=== PATIENT | female | born 1975 | race Caucasian/White ===

== ENCOUNTER 2018-12-04 17:49 | Emergency (ER) | payer OTHER, SELFPAY ==
[2018-12-04 17:55] VITALS: BP 132/80; PULSE 72; RESP 16; TEMP 36.2; O2SAT 100
--- NOTE | 2018-12-04 18:33 | ED_ITS ---
HPI - Trauma General Chief Complaint: Trauma Stated Complaint: HIT HEAD PASSED OUT Time Seen by Provider: 12/04/18 18:21 Source: patient Mode of arrival: ambulatory Limitations: no limitations History of Present Illness HPI narrative: Otherwise healthy 43-year-old female here for evaluation of injury she sustained after she was thrown from a horse. She states she was riding her horse when the horse ran her into a branch. She states she was wearing a helmet. Did hit the left side of her head. She does not specifically remember the incident. The next thing she remembers was waking up on the ground. Does not know how long she was down. She was ambulatory afterwards. Was somewhat confused afterwards. Not on blood thinners. No extremity injuries. She stated that there was no damage to her helmet other than the visor will was broken. Has reports that she has been somewhat confused and repeating questions. Related Data Allergies Allergy/AdvReac Type Severity Reaction Status Date / Time Penicillins Allergy Verified 12/04/18 17:54 Review of Systems Constitutional Denies headache(s) and Denies weakness Eyes Denies loss of vision ENT Ears, Nose, Mouth, and Throat: Denies vertigo, Denies dizziness, Denies headache (s), Reports neck pain and Denies disequilibrium Cardiovascular Denies chest pain, Denies syncope and Denies dyspnea Respiratory Denies dyspnea Gastrointestinal Gastrointestinal: Denies abdominal pain, Reports nausea and Denies vomiting Musculoskeletal Denies abnormal gait, Denies back pain, Denies myalgias, Denies arthralgias, Denies joint swelling, Denies limited range of motion, Reports neck pain, Denies stiffness and Denies tingling Integumentary/Breasts Denies rash Comments: Abrasion to the left forehead Neurologic Denies abnormal gait, Denies burning sensations, Reports confusion, Denies vertigo, Denies dizziness, Denies syncope, Denies headache(s), Denies focal weakness, Denies loss of vision, Reports memory loss, Denies other visual disturbances, Denies seizure-like activity, Denies sensory deficit, Denies tingling, Denies paresthesias, Denies disequilibrium and Denies weakness Psychiatric Reports confusion and Reports memory loss Hematologic/Lymphatic Comments: Not on anticoagulation PFSH Medical History Healthy adult (Acute) Surgical History No pertinent past surgical history (Acute) Social History Smoking Status: Never smoker Exam Initial Vital Signs Initial Vital Signs: Vital Signs Temperature 97.2 F L 12/04/18 17:55 Pulse Rate 72 12/04/18 17:55 Respiratory Rate 16 12/04/18 17:55 Blood Pressure 132/80 12/04/18 17:55 Pulse Oximetry 100 12/04/18 17:55 Const General: cooperative, healthy appearing, comfortable, well developed, well groomed and No acute distress Orientation: alert, awake and oriented x3 HENMT Head: other (Abrasion to the left forehead) Nose: external nose normal Mouth: oral mucosae normal Teeth and gingiva: dentition normal Chest Chest: normal inspection of the chest and No crepitus Resp Effort & Inspection: normal respiratory effort Auscultation: clear to auscultation bilaterally Cardio Rate: regular rate Rhythm: regular rhythm Pulses: radial pulses present GI Inspection: non-distended Palpation: soft Back/Spine/Pelvis Cervical Spine: No cervical spasm, cervical spinal tenderness and No step off deformity Thoracic/Lumbar Spine: No thoracic spinal tenderness and No lumbar spinal tenderness Skin Other: Abrasion left forehead Neuro General: alert, awake and oriented x3 Cranial Nerves: CN's II-XI intact bilaterally Cognition: normal cognition Speech: speech normal Motor: muscle tone normal throughout Sensory Exam: no sensory deficits noted Extrem General: normal to inspection, full ROM, capillary refill normal and No edema Psych Appearance: grossly normal and well kempt Course Orders Ordered: ED Orders 12/04/18 18:34 CT cervical spine wo con Stat 12/04/18 18:35 CT head/brain wo con Stat Discontinued Medications Ondansetron HCl (Zofran Odt) 4 mg SL NOW ONE Stop: 12/04/18 18:48 Last Admin: 12/04/18 18:48 Dose: 4 mg Vital Signs - 8 hr 12/04/18 17:55 12/04/18 19:35 Temperature 97.2 F L Pulse Rate 72 78 Respiratory Rate 16 15 Blood Pressure 132/80 Blood Pressure [Left Arm] 133/77 Pulse Oximetry 100 100 MDM - Trauma Imaging Data CT cervical spine: Radiologist's impression: PROCEDURE: CT CERVICAL SPINE WO CON INDICATIONS: fall hit head with LOC TECHNIQUE: Noncontrast 3 mm thick sections acquired from the skull base to the T4 level. Sagittal and coronal reformats were then constructed. For radiation dose reduction, the following was used: automated exposure control, adjustment of mA and/or kV according to patient size. COMPARISON: None. FINDINGS: Image quality: Excellent. Bones: No fractures or dislocations. There is straightening of the cervical lordosis. Minimal anterolisthesis demonstrated at C4-C5. There is [id number] multilevel facet arthropathy including moderate degeneration at C4-C5. Visualized superior ribs are intact. Soft tissues: Prevertebral soft tissues are normal in thickness. No paravertebral hematomas. No apical pneumothoraces. IMPRESSION: 1. No definite fracture or subluxation. 2. Minimal anterolisthesis at C4-C5 likely degenerative in etiology. Dictated by: Harinder Poe M.D. on 12/04/2018 at 19:10 Approved by: Harinder Poe M.D. on 12/04/2018 at 19:12 CT scan - head: Radiologist's impression: [place] [address] CT Scan Report Signed Patient: STEPHANIE KAMARA MR#: [id number] : 1975 Acct:[id number] Age/Sex: 43 / F Date of Service: 12/04/18 Loc: ED Accession Number: [id number] Procedure: CT head/brain wo con Ordering Provider: Darrick Ayon D.O. PROCEDURE: CT HEAD/BRAIN WO CON INDICATIONS: fell hit head with LOC TECHNIQUE: Noncontrast 4.5 mm thick angled axial sections acquired from the foramen magnum to the vertex, with coronal and sagittal reformats. For radiation dose reduction, the following was used: automated exposure control, adjustment of mA and/or kV according to patient size. COMPARISON: None. FINDINGS: Image quality: Excellent. CSF spaces: Basal cisterns are patent. No extra-axial fluid collections. Ventricles are normal in size and shape. Brain: No intracranial hemorrhage, mass, or mass effect. Swann-white matter interface is preserved. Skull and face: Calvarium and visualized facial bones are intact, without suspicious lesions. Sinuses: Visualized sinuses and mastoids are clear. IMPRESSION: 1. No acute intracranial abnormality. Dictated by: Harinder Poe M.D. on 12/04/2018 at 19:09 Approved by: Harinder Poe M.D. on 12/04/2018 at 19:10 MDM Narrative Medical decision making narrative: Patient was placed in a cervical collar and she was brought back to the room due to midline cervical spine tenderness. The CT scan and head CT did eventually resulted as unremarkable. Patient does have an abrasion to her left forehead which does not need any interventions here in the emergency department. We did discuss that she was going to be more sore tomorrow. We did discuss the possibility of having other symptoms to include nausea and headaches in vision changes in mood swings. We did discuss that if she had specific additional symptoms tomorrow that she should return for further evaluation. She was also instructed she needed to replace her writing helmet. Her was at bedside for these discussions. Expressed understanding and agreement with plan. Discharge Plan Departure Patient Disposition: Home Clinical Impression: Concussion, CHI (closed head injury), Abrasion of forehead Discharge Date/Time: 12/04/18 19:42 Interventions: ED Discharge Assessment Last Done: 12/04/18 19:41 Instructions: Concussion, Closed Head Injury, DI for Abrasion Activity Restrictions/Additional Instructions: Expect to be more sore tomorrow. You can sleep like normal. You can eat like normal. You can take Tylenol and/or Motrin for any discomfort. I would recommend that you may contact with a primary care doctor. You can return to the emergency department at any time for new or worsening symptoms
[2018-12-04] MEDS: ONDANSETRON 4 MG ODT SL (18:48)
[2018-12-04 19:35] VITALS: BP 133/77; PULSE 78; RESP 15; O2SAT 100
== END 2018-12-04 19:42 | disposition home or self-care (01) ==
PROVIDERS: Emergency Provider Emergency Medicine
DX: S09.90XA Unspecified injury of head, initial encounter (principal); W22.8XXA Striking against or struck by other objects, initial encounter; Y93.52 Activity, horseback riding
CPT/HCPCS: 70450; 72125; 99283; 99284

== ENCOUNTER 2020-06-12 20:36 | Observation (INO) | payer OTHER, SELFPAY ==
[2020-06-12] VITALS (11 sets, daily range): BP systolic 119–167; BP diastolic 71–102; PULSE 59–77; RESP 15–19; TEMP 36.6; O2SAT 97–100; BMI 23.1
--- NOTE | 2020-06-12 20:45 | DI.CT.S_ITS ---
PROCEDURE: CT HEAD/BRAIN WO CON INDICATIONS: left side of body numb TECHNIQUE: Noncontrast 4.5 mm thick angled axial sections acquired from the foramen magnum to the vertex, with coronal and sagittal reformats. For radiation dose reduction, the following was used: automated exposure control, adjustment of mA and/or kV according to patient size. COMPARISON: [facility], CT, CT HEAD/BRAIN WO CON, 12/04/2018, 18:41. FINDINGS: Image quality: Excellent. CSF spaces: Basal cisterns are patent. No extra-axial fluid collections. Ventricles are normal in size and shape. Brain: No midline shift. No intracranial masses or hemorrhage. Swann-white matter interface is normal. Skull and face: Calvarium and visualized facial bones are intact, without suspicious lesions. Sinuses: Visualized sinuses and mastoids are clear. IMPRESSION: No CT evidence of acute intracranial pathology. No significant changes from previous study. Dictated by: Kahlil Jasmine M.D. on 06/12/2020 at 21:16 Approved by: Kahlil Jasmine M.D. on 06/12/2020 at 21:17
[2020-06-12 21:08] LABS: Add Manual Diff / Slide Review NO; Basophils Absolute Auto 100 /uL (0-100); Basophils Percent Auto 0.9 % (0-2); Eosinophils Absolute Auto 0 /uL (0-450); Hematocrit 40.9 % (36-46); Hemoglobin 13.8 g/dL (12.0-16.0); Lymphocytes Absolute Auto 2300 /uL (1100-4500); Lymphocytes Percent Auto 38.8 % (25-40); Mean Corpuscular HGB Conc 33.8 % (30-36); Mean Corpuscular Volume 91.7 fL (80-100); Monocytes Absolute Auto 300 /uL (0-900); Monocytes Percent Auto 5.5 % (3-14); Neutrophils Absolute Auto 3200 /uL (1500-7000); Neutrophils Percent Auto 54.8 % (50-75); Platelet Count 273 X10^3/uL (150-400); Red Blood Cell Count 4.46 X10^6/uL (4.0-5.2); Red Cell Distribution Width 13.1 % (11.6-14.8); White Blood Cell Count 5.9 X10^3/uL (4.5-11.0)
[2020-06-12 21:15] LABS: Prothrombin Time 11.5 SECONDS (10.1-12.7)
[2020-06-12 21:18] LABS: PTT Partial Thromboplastin Tim 30 SECONDS (26.4-36.2)
[2020-06-12 21:21] LABS: BUN Creatinine Ratio 23.9 (6-22); Blood Urea Nitrogen 21 mg/dL (7-17); Calcium 9.7 mg/dL (8.4-10.2); Carbon Dioxide 26 mmol/L (22-32); Chloride 106 mmol/L (98-107); Estimated Glomerular Filt Rate > 60.0 mL/min (>60); Glucose 85 mg/dL (70-100); HEMOLYSIS < 15 (0-50); Potassium 3.3 mmol/L (3.4-5.1); Sodium 139 mmol/L (137-145)
--- NOTE | 2020-06-12 21:22 | ED_ITS ---
HPI - Neuro Symptoms/Deficit General Chief Complaint: Neuro Symptoms/Deficit Stated Complaint: tingling left side of her body Time Seen by Provider: 06/12/20 20:42 Source: patient Mode of arrival: Ambulatory Limitations: no limitations History of Present Illness HPI Narrative: 44F nonsmoker without chronic medical history presents with the chief complaint of decreased sensation on much of the left side of her body since 0700. She first noticed some numbness and occasional tingling on her chin and then noticed left arm and leg. She occasionally has vague generalized headache in thinks she had some headache this morning but is not persistent. She denies any recent injury nor illness involving fever, chills, runny nose, sore throat or cough. She denies any recent traumatic injury. She denies any change in medications or diet. She denies associated symptoms such as blurred vision, trouble with speech, trouble with coordination or ambulation. She denies any history of the same. Onset (ago): hour(s) Location: left face, left arm and left leg History of same: No Severity: mild Quality: numb and tingling Relieving factors: none Exacerbating factors: none On Anticoagulants: No Associated symptoms: denies other symptoms Treatments Prior to Arrival: none Related Data Allergies Allergy/AdvReac Type Severity Reaction Status Date / Time Penicillins Allergy Verified 12/04/18 17:54 Review of Systems Constitutional Constitutional: Denies chills, Denies fatigue, Denies fever(s), Denies frequent falls, Denies lethargy and Denies weakness Eyes Eyes: Denies change in vision, Denies eye discharge, Denies irritation and Denies loss of vision ENT Ears, Nose, Mouth, and Throat: Denies change in voice, Denies dizziness, Denies neck pain, Denies sore throat and Denies throat swelling Cardiovascular Cardiovascular: Denies chest pain, Denies irregular heart rhythm, Denies lightheadedness, Denies palpitations, Denies dyspnea, Denies dyspnea on exertion and Denies orthopnea Respiratory Respiratory: Denies cough, Denies dyspnea, Denies dyspnea on exertion and Denies wheezing Gastrointestinal Gastrointestinal: Denies abdominal pain, Denies change in bowel habits, Denies diarrhea, Denies nausea and Denies vomiting Musculoskeletal Musculoskeletal: Denies neck pain, Denies numbness and Reports tingling Integumentary/Breasts Skin/Breast: Denies pruritus, Denies erythema, Denies rash and Denies wounds Neurologic Neurologic: Denies behavioral changes, Denies confusion, Denies dizziness, Denies frequent falls, Denies loss of vision, Denies numbness, Reports sensory deficit, Reports tingling and Denies weakness Psychiatric Psychiatric: Denies anxiety, Denies behavioral changes, Denies confusion, Denies depression, Denies homicidal ideation and Denies suicidal ideation Endocrine Endocrine: Denies fatigue, Denies flushing and Denies palpitations Hematologic/Lymphatic Hematologic/Lymphatic: Denies easy bruising Allergic/Immunologic Allergic/Immunologic: Denies urticaria, Denies throat swelling and Denies wheezing Patient History Medical History Healthy adult (Acute) Surgical History No pertinent past surgical history (Acute) Social History Smoking Status: Never smoker Smoking Status: Never smoker alcohol intake frequency: 0-2 drinks per day Substance Use Type: does not use Exam Narrative Exam Narrative: GENERAL: [44] year old patient appears stated age. Well- nourished, well-developed patient, in mild distress. HEAD: Atraumatic. Normocephalic. EYES: Pupils equal round and reactive. Extraocular motions intact. No scleral icterus. No injection or drainage. ENT: Nose without bleeding, purulent drainage. Throat without erythema, tonsillar hypertrophy or exudate. Airway patent. NECK: Trachea midline. Non tender CARDIOVASCULAR: Regular rate and rhythm without murmurs, gallops, or rubs. RESPIRATORY: Clear to auscultation. Breath sounds equal bilaterally. No wheezes, rales, or rhonchi. GASTROINTESTINAL: Abdomen soft, non-tender, nondistended. EXTREMITIES: No edema or joint tenderness. BACK: Nontender without deformity or crepitance. No flank tenderness. NEURO: AOx3. Reflexes and strength in tact. LUE/LLE with decreased sensation of pinprick, light touch, and temperature. LUE has slightly decreased accuracy of 2 point discrimination SKIN: No rash or erythema of visible areas Initial Vital Signs Initial Vital Signs: Vital Signs Pulse Rate 74 06/12/20 20:45 Pulse Oximetry 100 06/12/20 20:45 Scores NIH Stroke Scale Level of Conciousness: Alert, keenly responsive Ask month/age: Answers both questions correctly. Open/close eyes, close hand: Performs both tasks correctly Best gaze horizontal: Normal Visual cano: No visual loss Facial palsy: Normal symetrical movement Left arm drift: No drift for full 10 sec Right arm drift: No drift for full 10 sec Left leg drift: No drift for full 10 sec Right leg drift: No drift for full 10 sec Limb ataxia: Absent Sensory on face/arms/legs: Mild to moderate sensory loss, can tell touch Best language: No aphasia, normal Dysarthria: Normal Extinction or inattention: No abnormality Total NIH Stroke scale score: 1 Course Course Course Narrative: initial BP high, normalized rather quickly without intervention. No change in symptoms as patient becomes normotensive. Atypical migraine considered a possibility, hence choice of medications, however no change in symptoms. Spinal etiology considered, but thought less likely given facial involvement. Orders Ordered: ED Orders 06/12/20 20:45 CT head/brain wo con Stat EKG-12 Lead Stat 06/12/20 21:01 Basic Metabolic Panel Stat Complete Blood Count AUTO DIFF Stat Partial Thromboplastin Time Stat Prothrombin Time INR Stat 06/12/20 22:29 CT angio head and neck Stat 06/12/20 22:49 Urine Drug Screen, Rapid Stat Sodium Chloride (Normal Saline 0.9%) 1,000 mls @ 150 mls/hr IV CONT BERTRAND Last Infusion: 06/12/20 22:04 Dose: 0 mls/hr Documented by: Admin: 06/12/20 21:40 Dose: 150 mls/hr Documented by: LASHA Discontinued Medications Sodium Chloride (Normal Saline 0.9%) 1,000 mls @ 1,000 mls/hr IV BOLUS ONE Stop: 06/12/20 22:57 Last Infusion: 06/12/20 23:06 Dose: 0 mls/hr Documented by: Admin: 06/12/20 22:09 Dose: 1,000 mls/hr Documented by: LASHA Ketorolac Tromethamine (Toradol) 15 mg IV NOW ONE Stop: 06/12/20 21:59 Last Admin: 06/12/20 22:08 Dose: 15 mg Documented by: LASHA Metoclopramide HCl (Reglan) 10 mg IV NOW ONE Stop: 06/12/20 21:59 Last Admin: 06/12/20 22:08 Dose: 10 mg Documented by: RNESTER Consultations Consultation #1: call to Neuro at [facility] for consult (Dr. Gunderson). He recommends CTA Head/Neck, admission, stroke MRI tomorrow Vital Signs Vital signs: Vital Signs - 8 hr 06/12/20 20:45 06/12/20 20:46 06/12/20 21:00 Temperature 97.8 F Pulse Rate 74 77 67 Respiratory Rate 16 19 Blood Pressure 167/102 H Pulse Oximetry 100 100 100 06/12/20 21:30 06/12/20 21:33 06/12/20 21:49 Temperature Pulse Rate 68 71 69 Respiratory Rate 15 18 Blood Pressure 141/78 H 141/78 H Pulse Oximetry 100 100 98 06/12/20 22:00 06/12/20 22:30 06/12/20 23:00 Temperature Pulse Rate 59 L 68 68 Respiratory Rate Blood Pressure 132/82 119/71 Pulse Oximetry 100 99 100 06/12/20 23:01 06/12/20 23:30 Temperature Pulse Rate 65 61 Respiratory Rate Blood Pressure 135/79 121/75 Pulse Oximetry 99 97 MDM - Neuro Symptoms/Deficit Lab Data Result diagrams: 06/12/20 21:01 06/12/20 21:01 Labs: Lab Results 06/12/20 06/12/20 06/12/20 Range/Units 21:01 21:01 21:01 WBC 5.9 (4.5-11.0) X10^3/uL RBC 4.46 (4.0-5.2) X10^6/uL Hgb 13.8 (12.0-16.0) g/dL Hct 40.9 (36-46) % MCV 91.7 (80-100) fL MCH 31.0 (26-34) PG MCHC 33.8 (30-36) % RDW 13.1 (11.6-14.8) % Plt Count 273 (150-400) X10^3/uL Neut % (Auto) 54.8 (50-75) % Lymph % (Auto) 38.8 (25-40) % [place] % (Auto) 5.5 (3-14) % Eos % (Auto) 0.0 L (2-4) % Baso % (Auto) 0.9 (0-2) % Neut # (Auto) 3200 (2310-1240) /uL Lymph # (Auto) 2300 (9643-4622) /uL [place] # (Auto) 300 (0-900) /uL Eos # (Auto) 0 (0-450) /uL Baso # (Auto) 100 (0-100) /uL PT 11.5 (10.1-12.7) SECONDS INR 1.0 (0.9-1.3) APTT 30 (26.4-36.2) SECONDS Sodium 139 (137-145) mmol/L Potassium 3.3 L (3.4-5.1) mmol/L Chloride 106 (98-107) mmol/L Carbon Dioxide 26 (22-32) mmol/L BUN 21 H (7-17) mg/dL Creatinine 0.88 (0.52-1.04) mg/dL Estimated GFR > 60.0 (>60) mL/min BUN/Creatinine Ratio 23.9 H (6-22) Glucose 85 (70-100) mg/dL Calcium 9.7 (8.4-10.2) mg/dL U Opiates 300ng/mL cut (Negative) Ur Oxycodone Screen (Negative) Urine Methadone Screen (Negative) Ur Barbiturates Screen (Negative) U Tricyclic Antidepress (Negative) Ur Phencyclidine Scrn (Negative) Ur Amphetamines Screen (Negative) U Methamphetamines Scrn (Negative) Ur MDMA Scrn (Ecstasy) (Negative) U Benzodiazepines Scrn (Negative) Urine Cocaine Screen (Negative) U Marijuana (THC) Screen (Negative) 06/12/20 Range/Units 22:49 WBC (4.5-11.0) X10^3/uL RBC (4.0-5.2) X10^6/uL Hgb (12.0-16.0) g/dL Hct (36-46) % MCV (80-100) fL MCH (26-34) PG MCHC (30-36) % RDW (11.6-14.8) % Plt Count (150-400) X10^3/uL Neut % (Auto) (50-75) % Lymph % (Auto) (25-40) % [place] % (Auto) (3-14) % Eos % (Auto) (2-4) % Baso % (Auto) (0-2) % Neut # (Auto) (8406-3616) /uL Lymph # (Auto) (2703-3870) /uL [place] # (Auto) (0-900) /uL Eos # (Auto) (0-450) /uL Baso # (Auto) (0-100) /uL PT (10.1-12.7) SECONDS INR (0.9-1.3) APTT (26.4-36.2) SECONDS Sodium (137-145) mmol/L Potassium (3.4-5.1) mmol/L Chloride (98-107) mmol/L Carbon Dioxide (22-32) mmol/L BUN (7-17) mg/dL Creatinine (0.52-1.04) mg/dL Estimated GFR (>60) mL/min BUN/Creatinine Ratio (6-22) Glucose (70-100) mg/dL Calcium (8.4-10.2) mg/dL U Opiates 300ng/mL cut Negative (Negative) Ur Oxycodone Screen Negative (Negative) Urine Methadone Screen Negative (Negative) Ur Barbiturates Screen Negative (Negative) U Tricyclic Antidepress Negative (Negative) Ur Phencyclidine Scrn Negative (Negative) Ur Amphetamines Screen Negative (Negative) U Methamphetamines Scrn Negative (Negative) Ur MDMA Scrn (Ecstasy) Negative (Negative) U Benzodiazepines Scrn Negative (Negative) Urine Cocaine Screen Negative (Negative) U Marijuana (THC) Screen Negative (Negative) Point of Care Testing Glucose POC 120 Urine Dip Bedside Urine Glucose Negative Bedside Urine Bilirubin - Negative Bedside Urine Ketone - Negative Urine Specific [place] 1.020 Bedside Urine Occult Blood - Negative Bedside Urine pH 6.0 Bedside Urine Protein - Negative Bedside Urine Urobilinogen - Negative Bedside Urine Nitrite - Negative Bedside Urine Leukocytes - Negative Esterase Imaging Data CT scan - head: Radiologist's Impression: [address] [address] [address] Scan Report Signed Patient: DASH KAMARA#: [id number] : 1975Acct:[id number] Age/Sex: 44 / FDate of Service: 06/12/20 Loc: ED Accession Number: [id number] Procedure: CT head/brain wo con Ordering Provider: [place],Abelardo D.O. PROCEDURE: CT HEAD/BRAIN WO CON INDICATIONS: left side of body numb TECHNIQUE: Noncontrast 4.5 mm thick angled axial sections acquired from the foramen magnum to the vertex, with coronal and sagittal reformats. For radiation dose reduction, the following was used: automated exposure control, adjustment of mA and/or kV according to patient size. COMPARISON: [facility], CT, CT HEAD/BRAIN WO CON, 12/04/2018, 18:41. FINDINGS: Image quality: Excellent. CSF spaces: Basal cisterns are patent. No extra-axial fluid collections. Ventricles are normal in size and shape. Brain: No midline shift. No intracranial masses or hemorrhage. Swann-white matter interface is normal. Skull and face: Calvarium and visualized facial bones are intact, without suspicious lesions. Sinuses: Visualized sinuses and mastoids are clear. IMPRESSION: No CT evidence of acute intracranial pathology. No significant changes from previous study. Dictated by: Kahlil Jasmine M.D. on 06/12/2020 at 21:16 Approved by: Kahlil Jasmine M.D. on 06/12/2020 at 21:17 CTA Head/Neck: Radiologist's Impression: NAP Discharge Plan Departure Patient Disposition: Admitted as Observation Clinical Impression: Cerebrovascular accident Qualifiers: CVA mechanism: unspecified Qualified Code(s): I63.9 - Cerebral infarction, unspecified
[2020-06-12] MEDS: SODIUM CHLORIDE 0.9% 1,000 ML 150 ML IV (21:40)
[2020-06-12] MEDS: METOCLOPRAMIDE 10 MG/2 ML INJ IV (22:08)
[2020-06-12] MEDS: KETOROLAC 60 MG/2 ML VIAL 15 MG IV (22:08)
[2020-06-12] MEDS: SODIUM CHLORIDE 0.9% 1,000 ML 1000 ML IV (22:09)
--- NOTE | 2020-06-12 22:29 | DI.CT.S_ITS ---
PROCEDURE: CT ANGIO HEAD AND NECK INDICATIONS: stroke symptoms, per neuro TECHNIQUE: Pre-contrast 4.5 mm thick sections acquired from the foramen magnum to the vertex. After the administration of intravenous contrast, 1 mm thick sections acquired from the aortic arch through the [place]. Post-contrast 4.5 mm thick sections then re-acquired from the foramen magnum to the vertex. 3-dimensional gzjrcoa-xvxukzgmr-yijazfxsuq (MIP) and/or volume rendering reformats were acquired of the central intracranial vasculature and neck separately. COMPARISON: None. FINDINGS: Image quality: Excellent. BRAIN: CSF spaces: Ventricles are normal in size and shape. Basal cisterns are patent. No extra-axial fluid collections. Brain: No midline shift. No intracranial bleeds or masses. Swann-white matter interface appears intact. Skull and face: Calvarium and facial bones appear intact, without suspicious lesions. Orbits appear normal. Sinuses: Sinuses and mastoids are clear. HEAD CT ANGIOGRAPHY: Anterior circulation: Intracranial internal carotid arteries are normal in size and flow. The flow within the paired anterior cerebral arteries is normal and symmetric. The flow within the middle cerebral arteries is normal and symmetric. The anterior communicating artery is seen. No aneurysms are seen. Posterior circulation: Visualized portions of the vertebral arteries demonstrate normal caliber, and join to form a normal appearing basilar artery. Flow within the posterior cerebral arteries is normal and symmetric. No aneurysms are seen. NECK CT ANGIOGRAPHY: Carotid system: The great vessels demonstrate a conventional anatomy as they arise from the aortic arch. The origins of the common carotid arteries appear patent. The common carotid arteries demonstrate normal caliber and courses. The bifurcation regions are both widely patent. The internal carotid arteries demonstrate normal calibers and courses. Posterior circulation: The origins of the vertebral arteries both appear widely patent. The more superior extracranial portions of both vertebral arteries also demonstrate normal courses and calibers. They join to form a normal appearing basilar artery. Soft tissues: Visualized neck soft tissues demonstrate no suspicious abnormalities. Bones: No suspicious bony lesions. Visualized cervical spine appears normally aligned. IMPRESSION: Negative CT angiography of the head and neck. Concordant with preliminary interpretation. Any quantitative measurements of stenosis were performed using NASCET criteria. Dictated by: Nichol Orta M.D. on 06/13/2020 at 6:59 Approved by: Nichol Orta M.D. on 06/13/2020 at 7:01
[2020-06-12 22:56] LABS: UR Morphine/Opiate cutoff 300 Negative (Negative); Ur Creatinine Normal (Normal); Ur Specific Gravity Normal (Normal); Urine Amphetamines Negative (Negative); Urine Barbiturates Negative (Negative); Urine Benzodiazepines Negative (Negative); Urine Cocaine Negative (Negative); Urine MDMA Negative (Negative); Urine Methadone Negative (Negative); Urine Methamphetamines Negative (Negative); Urine Oxycodone Negative (Negative); Urine Phencyclidine Negative (Negative); Urine Tetrahydrocannabinol Negative (Negative); Urine Tricyclic Antidepressant Negative (Negative); Urine pH Normal (Normal)
[2020-06-13] VITALS (10 sets, daily range): BP systolic 105–132; BP diastolic 58–80; PULSE 60–75; RESP 16–18; TEMP 36.1–37; O2SAT 96–100; BMI 23.1
--- NOTE | 2020-06-13 02:28 | PC.ADMIT ---
[id number] Admission Note:Pt arrived to unit without issues. Alert and oriented x4. SBA and steady on feet. Skin check done with Zahra RN, no skin issues. Pt denies any pain. Slight numbness to left side, pt unable to describe it. Reports Left side just feels slightly different than right when you touch it NIH scale 1. Notified Dr Quinonez of patient arrival via phone, orders received. Pt SR/SB on tele. PT has no complaints at this time. The patient,Jovan Montelongo,44 y/o, was given written information regarding hospital policies, unit procedures and contact persons. Patient's smoking status: Never smoker. Vital Signs - 8 hr 06/12/20 20:45 06/12/20 20:46 06/12/20 21:00 Temperature 97.8 F Pulse Rate 74 77 67 Respiratory Rate 16 19 Blood Pressure 167/102 H Pulse Oximetry 100 100 100 06/12/20 21:30 06/12/20 21:33 06/12/20 21:49 Temperature Pulse Rate 68 71 69 Respiratory Rate 15 18 Blood Pressure 141/78 H 141/78 H Pulse Oximetry 100 100 98 06/12/20 22:00 06/12/20 22:30 06/12/20 23:00 Temperature Pulse Rate 59 L 68 68 Respiratory Rate Blood Pressure 132/82 119/71 Pulse Oximetry 100 99 100 06/12/20 23:01 06/12/20 23:30 06/13/20 00:00 Temperature Pulse Rate 65 61 72 Respiratory Rate Blood Pressure 135/79 121/75 132/80 Pulse Oximetry 99 97 96 06/13/20 00:30 06/13/20 01:00 06/13/20 01:30 Temperature Pulse Rate 65 70 64 Respiratory Rate Blood Pressure 115/58 L 127/66 111/59 L Pulse Oximetry 96 96 98 06/13/20 02:14 Temperature 97.0 F L Pulse Rate 60 Respiratory Rate 16 Blood Pressure 111/60 Pulse Oximetry 97
--- NOTE | 2020-06-13 08:00 | DI.ECHO.S_ITS ---
[facility]---------+ [facility] +---------+ : : [address] [place] : : : : [id number] : : : : Phone: [phone]+ Echocardiogram Report + + :Name: STEPHANIE KAMARA Study Date: 06/13/2020 Height: 64 in : :[facility] Weight: 135 lb : : Gender: Female BSA: 1.7 m2 : :: 1975 Age: 44 yrs BP: 105/61 mmHg: :Reason For Study: STROKE : :Ordering Physician: HOSPITALIST, : :ARLETTE Performed By: Kalani Flanagan : :Referring: Pearl GARDUNO E : + + Interpretation Summary The left ventricle is normal in size and wall thickness. The ejection fraction is estimated to be 55-60%. There are no focal wall motion abnormalities. Diastolic parameters suggest probable normal left ventricular diastolic function and normal filling pressures. The right ventricle is normal in size and function. Pulmonary artery pressures cannot be estimated because of the lack of a measurable TR jet velocity but the IVC suggests a CVP of around 8 mmHg. The left atrium is mildly dilated. Right atrial size is normal. There is no Doppler evidence for an interatrial shunt. Injection of contrast documented no interatrial shunt. There is no significant valvular heart disease. The aortic root is normal size. Procedure: A two-dimensional transthoracic echocardiogram with color flow and Doppler was performed. The study quality was technically adequate. There is no prior echocardiogram noted for this patient. A saline contrast injection was performed to assess for cardiac shunting. The injection was performed through an intravenous line in the left arm. The heart rate ranged between 58- 65 bpm during the study. Left Ventricle: The left ventricle is normal in size and wall thickness. The ejection fraction is estimated to be 55-60%. There are no focal wall motion abnormalities. Diastolic parameters suggest probable normal left ventricular diastolic function and normal filling pressures. Right Ventricle: The right ventricle is normal in size and function. Atria: The left atrium is mildly dilated. Right atrial size is normal. There is no Doppler evidence for an interatrial shunt. Injection of contrast documented no interatrial shunt. Mitral Valve: The mitral valve is normal in structure and function. There is no mitral regurgitation noted. Aortic Valve: The aortic valve is trileaflet. The aortic valve opens well. There is no aortic valve stenosis. No aortic regurgitation is present. Tricuspid Valve: The tricuspid valve is normal in structure and function. There is a trace or physiologic amount of tricuspid regurgitation. Pulmonary artery pressures cannot be estimated because of the lack of a measurable TR jet velocity but the IVC suggests a CVP of around 8 mmHg. Pulmonic Valve: The pulmonic valve is not well seen, but is grossly normal. There is no pulmonic valvular regurgitation. There is no significant valvular heart disease. Great Vessels: The aortic root is normal size. The ascending aorta is normal in size. The IVC is of normal diameter and collapses less than 50% with a sniff. This suggests a right atrial pressure of 8 mm Hg. Pericardium/ Pleura There is no pericardial effusion. There is no pleural effusion. MMode/2D Measurements & Calculations LVIDd: 4.8 cm LVOT diam: 2.0 cm LVIDs: 3.1 cm Ao root diam: 2.8 cm FS: 34.7 % asc Aorta Diam: 2.7 cm EPSS: 0.27 cm Ao Arch Diam (Prox Trans): 2.8 cm IVSd: 0.77 cm LVPWd: 0.78 cm LV garcia. diameter/BSA (cm/m^2): 2.9 LV sys. diameter/BSA (cm/m^2): 1.9 LA A2 area: 19.1 cm2 RA long axis: 5.1 cm LA A4 area: 19.0 cm2 RA area: 16.7 cm2 LA length (vol): 5.4 cm RA vol: 46.2 ml LA vol: 57.2 ml RA : 27.9 ml/m2 LA vol index: 34.5 ml/m2 IVC diam: 1.6 cm RVD1 (basal): 2.7 cm TAPSE: 2.6 cm Doppler Measurements & Calculations Ao V2 max: 132.8 cm/sec LVOT Max Manish: 108.6 cm/sec Ao V2 mean: 85.7 cm/sec LV V1 max P.7 mmHg Ao max P.1 mmHg LV V1 VTI: 24.7 cm Ao mean P.4 mmHg CRISTOPHER(I,D): 2.8 cm2 Ao V2 VTI: 27.9 cm CRISTOPHER(V,D): 2.5 cm2 sev ratio: 0.89 CRISTOPHER indexed to BSA (cm^2/m^2): 1.7 MV E max manish: 83.3 cm/sec TR max manish: 209.4 cm/sec MV A max manish: 58.2 cm/sec TR max P.5 mmHg MV E/A: 1.4 Med Peak E' Manish: 12.6 cm/sec E/E' med: 6.6 Lat Peak E' Manish: 14.9 cm/sec E/E' lat: 5.6 E/e' average: 6.1 MV dec time: 0.17 sec SV(LVOT): 76.8 ml Reading Physician:01:26 PM
--- NOTE | 2020-06-13 08:01 | DI.MRI.S_ITS ---
PROCEDURE: MR STROKE Pre- and post-contrast brain MRI, non-contrast brain MR angiogram, pre- and postcontrast neck MR angiogram INDICATIONS: stroke r/o LEFT SIDED FACE TINGLE TECHNIQUE: Brain: Noncontrast axial T1 spin echo, axial T2 fast spin echo, sagittal and axial FLAIR, coronal T2 fast spin echo, axial gradient echo, axial diffusion and ADC through the brain. After the administration of contrast, axial 3D VIBE of the cranial vasculature and brain. Brain MRA: Non-contrast 3-D time of flight MR angiogram, with multiple sfkucya-efgnvkpud-aytbihilwq (MIP) reformats performed. Neck MRA: Axial and sagittal TruFISP through the neck. Coronal dynamic MR angiogram during administration of contrast in the arterial and venous phases, with 3-dimenstional wmomzme-cjkrefohb-lcjcfkfawd (MIP) reformats constructed from subtraction images. COMPARISON: [facility], CT, CT ANGIO HEAD AND NECK, 06/12/2020, 22:38. FINDINGS: Image quality: Excellent. BRAIN: CSF spaces: Ventricles are normal in size and shape. Basal cisterns are patent. No extra-axial fluid collections. Brain: No intracranial bleeds or mass effects. Swann-white matter interface is normal. Diffusion weighted images show no acute ischemic insults. Brainstem appears normal. Normal intravascular flow voids are present. No abnormal intracranial enhancement. Skull and face: Calvarial marrow signal is normal. Orbits appear normal. Sinuses: Sinuses and mastoids are clear. BRAIN MR ANGIOGRAM: Anterior circulation: Intracranial internal carotid arteries are normal in size and enhancement. The flow within the paired anterior cerebral arteries is normal and symmetric. The flow within the middle cerebral arteries is normal and symmetric. The anterior communicating artery is seen. No stenoses, occlusions, or aneurysms. Posterior circulation: The visualized portions of the vertebral arteries demonstrate normal caliber, and join to form a normal appearing basilar artery. The flow within the posterior cerebral arteries is normal and symmetric. No stenoses, occlusions, or aneurysms. NECK MR ANGIOGRAM: Carotids: Great vessels demonstrate a conventional anatomy as they arise from the aortic arch. The origins of the common carotid arteries appear patent. The calibers and courses of both common carotid arteries are normal. The bifurcation regions appear normal bilaterally. The internal carotid arteries demonstrate normal course and caliber. Posterior circulation: The origins of the vertebral arteries appear patent. More superior portions of both vertebral arteries demonstrate normal course and caliber, and join to form a normal appearing basilar artery. Miscellaneous: Subclavian arteries appear patent. Pre-contrast images through the neck show no soft tissue abnormalities. IMPRESSION: BRAIN MRI: Negative MRI of the brain. No recent infarct. BRAIN MR ANGIOGRAM: Negative cerebral MR angiography. NECK MR ANGIOGRAM: No internal carotid nor vertebral artery stenosis bilaterally. Dictated by: Nichol Orta M.D. on 06/13/2020 at 13:49 Approved by: Nichol Orta M.D. on 06/13/2020 at 13:52
--- NOTE | 2020-06-13 08:23 | PM.HP.1 ---
History of Present Illness History of Present Illness Date Patient Seen: 06/13/20 Chief complaint: tingling left side of her body Narrative: Jovan Montelongo is a 44-year-old female with a past medical history significant for depression, achalasia status post Heller myotomy with secondary GERD and esophageal spasm, chronic daily migraine headaches, and history of multiple concussions who presented to the ED with left-sided paresthesias. The patient reports that she went to check on her horses yesterday morning and began having left-sided jaw numbness and tingling. She continue to work throughout the day and the numbness and tingling slowly progressed down the left side of her body to her neck, arm and leg prompting her to come to the emergency department. She has never had this before. She had no associated meningeal symptoms including neck stiffness, fever, photophobia or phonophobia. She endorses mild headache almost daily and had a headache yesterday morning when her symptoms began. She reports she usually takes ibuprofen or acetaminophen to help alleviate her headaches. She denies associated photophobia or aura but does endorse phonophobia with her daily headaches. She also endorses intermittent episodes of sharp chest pain at left lateral sternal border that lasts seconds and resolves. She had an episode of this last night. She denies vision changes, shortness of breath, diaphoresis, nausea, or pain in her arm, neck or jaw. She has no other complaints. She has history of multiple concussions with her last concussion in November 2018. She is being admitted as observation for TIA rule out. Patient History Medical History (Updated 06/17/20 @ 22:41 by Payal West DO) Achalasia (Acute) Chronic daily headache (Acute) Depression (Acute) Esophageal spasm (Acute) GERD (gastroesophageal reflux disease) (Acute) Healthy adult (Acute) History of multiple concussions (Acute) Surgical History (Updated 06/17/20 @ 22:41 by Payal West DO) History of esophageal surgery (Acute) Family & Social History Family History (Updated 06/17/20 @ 22:51 by Payal West DO) Mother CAD (coronary artery disease) Stroke Hyperlipidemia Hypertension Heart attack Father Healthy adult Sister Hypertension Social History: household members spouse Prior Living Arrangements House Safety & Behavioral: Feels Safe in Current Yes Environment Been Physically Hurt or No Threatened By a Person Suicidal Ideation Description None Suicide Plan Description No Plan Tobacco & Substance use: Smoking Status Never smoker alcohol intake frequency 2 drinks per day, beer or wine Substance Use Type does not use She has been for 10 years. She has one son who is 5 years old and healthy. Meds Home Medications and Allergies Home Medications Medication Instructions Recorded Confirmed Type duloxetine 60 mg PO DAILY 06/13/20 06/13/20 History Allergies Allergy/AdvReac Type Severity Reaction Status Date / Time Penicillins Allergy Verified 12/04/18 17:54 Review of Systems Review of Systems Narrative: A 10 system comprehensive review of systems was conducted with the patient and found to be negative except as above in the History of Present Illness. Exam Vital Signs (past 8 hours): - 06/13/20 00:30 06/13/20 01:00 06/13/20 01:30 Temperature Pulse Rate 65 70 64 Respiratory Rate Blood Pressure 115/58 L 127/66 111/59 L Pulse Oximetry 96 96 98 06/13/20 02:14 06/13/20 05:21 Temperature 97.0 F L 97.5 F L Pulse Rate 60 69 Respiratory Rate 16 16 Blood Pressure 111/60 111/64 Pulse Oximetry 97 99 Oxygen Delivery Method Room Air Narrative Exam Narrative: General: Middle-aged female sitting at bedside acute distress, well-developed, well-nourished, appropriately interactive. HEENT: Normocephalic, atraumatic. External ears without defect. Pupils equal, round, and reactive to light and accommodation. Anicteric sclerae, moist conjunctivae, and no lid lag. Oropharynx free of erythema and cobble stoning with moist mucosa. Neck: Supple with full range of motion. No jugular venous distension. No bruits. No lymphadenopathy or thyromegaly. Cardiovascular: Regular rate and rhythm without murmurs, rubs, or gallops appreciated. Pulmonary: Clear to auscultation bilaterally without crackles, wheezes, or rhonchi. Normal respiratory effort with no use of accessory muscles. Abdomen: Soft, bowel sounds present, nontender, nondistended. No hepatosplenomegaly or masses appreciated. Extremities: No clubbing, cyanosis, or edema. Skin: Normal temperature, turgor, and texture; no rash, ulcers, or subcutaneous nodules appreciated. Neurological: Cranial nerves grossly intact. Normal muscle strength, tone, and bulk. Reflexes, coordination, and sensory function within normal limits. Left upper and lower extremity paresthesias, numbness and tingling, with decreased sensation to pinprick, light touch and temperature which are all improving. No known gait impairment. Psychiatric: Normal mood and affect. Alert and oriented to person, place, and time. Objective Labs Result Diagrams: 06/13/20 10:00 06/13/20 10:00 Labs: Laboratory Results - last 24 hr 06/12/20 06/12/20 06/12/20 21:01 21:01 21:01 WBC 5.9 RBC 4.46 Hgb 13.8 Hct 40.9 MCV 91.7 MCH 31.0 MCHC 33.8 RDW 13.1 Plt Count 273 Neut % (Auto) 54.8 Lymph % (Auto) 38.8 [place] % (Auto) 5.5 Eos % (Auto) 0.0 L Baso % (Auto) 0.9 Neut # (Auto) 3200 Lymph # (Auto) 2300 [place] # (Auto) 300 Eos # (Auto) 0 Baso # (Auto) 100 PT 11.5 INR 1.0 APTT 30 Sodium 139 Potassium 3.3 L Chloride 106 Carbon Dioxide 26 BUN 21 H Creatinine 0.88 Estimated GFR > 60.0 BUN/Creatinine Ratio 23.9 H Glucose 85 Calcium 9.7 Nasal Screen MRSA (PCR) U Opiates 300ng/mL cut Ur Oxycodone Screen Urine Methadone Screen Ur Barbiturates Screen U Tricyclic Antidepress Ur Phencyclidine Scrn Ur Amphetamines Screen U Methamphetamines Scrn Ur MDMA Scrn (Ecstasy) U Benzodiazepines Scrn Urine Cocaine Screen U Marijuana (THC) Screen 06/12/20 06/13/20 22:49 02:10 WBC RBC Hgb Hct MCV MCH MCHC RDW Plt Count Neut % (Auto) Lymph % (Auto) [place] % (Auto) Eos % (Auto) Baso % (Auto) Neut # (Auto) Lymph # (Auto) [place] # (Auto) Eos # (Auto) Baso # (Auto) PT INR APTT Sodium Potassium Chloride Carbon Dioxide BUN Creatinine Estimated GFR BUN/Creatinine Ratio Glucose Calcium Nasal Screen MRSA (PCR) Positive for mrsa H U Opiates 300ng/mL cut Negative Ur Oxycodone Screen Negative Urine Methadone Screen Negative Ur Barbiturates Screen Negative U Tricyclic Antidepress Negative Ur Phencyclidine Scrn Negative Ur Amphetamines Screen Negative U Methamphetamines Scrn Negative Ur MDMA Scrn (Ecstasy) Negative U Benzodiazepines Scrn Negative Urine Cocaine Screen Negative U Marijuana (THC) Screen Negative Assessment & Plan Assessment & Plan narrative: Jovan Montelongo is a 44-year-old female with a past medical history significant for depression, achalasia status post Heller myotomy with secondary GERD and esophageal spasm, chronic daily migraine headaches, and history of multiple concussions who presented to the ED with left-sided paresthesias. 1. Acute left-sided whole body paresthesias, present on admission. Resolving. -Patient presented with abrupt onset left-sided paresthesia of numbness and tingling that started in left face and jaw and progressively traveled to entire left side of body. -Differential diagnosis includes: Likely complex migraine versus CVA or TIA. -NIH score 1. Continue to monitor neurological status frequently. -EKG demonstrated normal sinus rhythm without acute ischemic changes such as ST elevation or depression. Troponin negative < 0.012. Continue to monitor closely on telemetry. -CT brain without contrast did not demonstrate any acute intracranial abnormalities. CTA head and neck did not demonstrate any acute intracranial or neck abnormalities including occlusions, stenoses or aneurysms. -Ordered MR stroke protocol, pending. -Ordered echocardiogram to rule out embolic source, pending. -Risk stratify with fasting lipid panel and hemoglobin A1c, pending. Depending on patient's risk assessment will consider starting aspirin and statin for stroke prevention. -Ordered speech therapy, occupational therapy and physical therapy evaluation treatment, pending. 2. Chronic daily migraine headache in setting of history of multiple concussions, chronic, present on admission. Stable. -Patient has a history of multiple concussions and chronic mild daily headaches. Patient takes ibuprofen or acetaminophen for relief and will order if needed. -Patient has never been evaluated by neurology and recommend neurology evaluation and treatment for headache and possible post concussive syndrome. 3. Depression, chronic, present on admission. Stable. -Continue home duloxetine 60 mg daily. 4. Achalasia status post Heller myotomy with secondary GERD and esophageal spasm, chronic, present on admission. Stable. -Patient does not take any medications for acid reflux. Will order PPI or H2 antagonist if necessary. Code status: Full code VTE prophylaxis: Enoxaparin Patient is admitted under observation status with expected length of stay less than 2 midnights due to severity of presenting symptoms, risk of adverse event, and complexity of treatment plan.
[2020-06-13 10:12] LABS: Add Manual Diff / Slide Review NO; Basophils Absolute Auto 0 /uL (0-100); Basophils Percent Auto 0.8 % (0-2); Eosinophils Absolute Auto 0 /uL (0-450); Hematocrit 39.9 % (36-46); Hemoglobin 13.5 g/dL (12.0-16.0); Lymphocytes Absolute Auto 1600 /uL (1100-4500); Lymphocytes Percent Auto 41.5 % (25-40); Mean Corpuscular HGB Conc 33.9 % (30-36); Mean Corpuscular Hemoglobin 31.2 PG (26-34); Mean Corpuscular Volume 91.9 fL (80-100); Monocytes Absolute Auto 300 /uL (0-900); Monocytes Percent Auto 7.1 % (3-14); Neutrophils Absolute Auto 2000 /uL (1500-7000); Neutrophils Percent Auto 50.6 % (50-75); Platelet Count 225 X10^3/uL (150-400); Red Blood Cell Count 4.34 X10^6/uL (4.0-5.2); Red Cell Distribution Width 13.1 % (11.6-14.8); White Blood Cell Count 3.9 X10^3/uL (4.5-11.0)
[2020-06-13 10:26] LABS: Cholesterol 189 mg/dL (140-199); HDL Cholesterol 90 mg/dL (40-60); LDL Cholesterol Calculated 84 mg/dL (<100); Triglycerides 76 mg/dL (35-150)
[2020-06-13 10:27] LABS: Alanine Aminotransferase 21 IU/L (<35); Albumin 4.1 g/dL (3.5-5.0); Albumin Globulin Ratio 1.6 (1.0-2.8); Alkaline Phosphatase 46 U/L (38-126); Aspartate Aminotransferase 28 IU/L (14-36); BUN Creatinine Ratio 21.3 (6-22); Bilirubin Total 1.2 mg/dL (0.2-1.3); Blood Urea Nitrogen 17 mg/dL (7-17); Calcium 9.1 mg/dL (8.4-10.2); Carbon Dioxide 27 mmol/L (22-32); Chloride 109 mmol/L (98-107); Estimated Glomerular Filt Rate > 60.0 mL/min (>60); Globulin 2.5 g/dL (1.7-4.1); Glucose 64 mg/dL (70-100); HEMOLYSIS < 15 (0-50); Magnesium 1.9 mg/dL (1.6-2.3); Potassium 3.8 mmol/L (3.4-5.1); Sodium 137 mmol/L (137-145); Total Protein 6.6 g/dL (6.3-8.2)
[2020-06-13] MEDS: ENOXAPARIN 40 MG/0.4 ML SYRINGE SUBCUT (10:48)
--- NOTE | 2020-06-13 11:22 | PT.IIE ---
Surgical History (Last Reviewed 06/12/20 @ 22:06 by Abelardo Barnes DO) No pertinent past surgical history (Acute) Medical History (Last Reviewed 06/12/20 @ 22:06 by Abelardo Barnes DO) Healthy adult (Acute) Physical Therapy Inpatient Evaluation/Re-Eval M1 PT/OT-IP Prior Functional Status Start: 06/13/20 13:36 Freq: NEEDED Status: Active Protocol: Document 06/13/20 11:22 AB (Rec: 06/13/20 13:46 AB [email or web address]) Medical Review Prior Functional Status Medical History Reviewed Yes Communication able to make needs known Mobility and Gait pt is independent with all mobilities and ambulation without AD Social History Household Members spouse Living Arrangements House Number of Floors (Floors) Two Floors Number of Stairs To Enter/Railing? 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 PT-IP Current Condition Start: 06/13/20 13:36 Freq: NEEDED Status: Active Protocol: Document 06/13/20 11:22 AB (Rec: 06/13/20 13:46 AB [email or web address]) Physical Therapy Current Condition Current Condition Evaluation Date 06/13/20 Treatment Diagnosis CVA; difficulty in walking Onset Date 06/13/20 M3 PT-IP Subjective Start: 06/13/20 13:36 Freq: NEEDED Status: Active Protocol: Document 06/13/20 11:22 AB (Rec: 06/13/20 13:46 AB [email or web address]) Subjective Physical Therapy Visit Type Type Initial Evaluation Visit Start Time 11:22 Visit Stop Time 11:37 Total Visit Minutes 15 Number of RAG SHREDDER Visits 0 Physical Therapy Visit Comments Patient Comments agreeable to do PT Therapy Pain Assessment Pain Present Pain Present Denied Pain M4 PT-IP Mobility and Gait Start: 06/13/20 13:36 Freq: NEEDED Status: Active Protocol: Document 06/13/20 11:22 AB (Rec: 06/13/20 13:46 AB [email or web address]) PT-Bed Mobility Assessment Supine to Sit Supine to Sit Independent Sit to Supine Sit to Supine Independent Scooting Scooting to Edge of Bed Independent PT-Transfer Assessment Sit to and From Stand Sit to and from Stand Independent Equipment Transfer Assistive Device None Orthotic/Prosthetic Devices or Brace: No Transfers Transfer Destination Bed,Chair Transfer Ability Level of Assist Independent Gait Assessment Gait Distance (Feet) 40 Able to Maintain Weight Bearing Status Yes During Gait Assistive Devices Assistive Device None Orthotic/Prosthetic Devices or Brace: No Gait Deviations General Gait Pattern Within Normal Limits Stair Climbing Assessment Evaluation Level of Assist On Stairs Independent Devices Stair Climbing Assistive Devices None Technique/Endurance Stair Climbing Direction Ascend and Descend Stair Climbing Technique Step Over Step,Step to Step Number of Steps Climbed 1 Query Text: Stair Climbing Set # Repetitions (reps) 6 Comments Stair Climbing Comments completed up/down step stool without AD with first few reps step to pattern and towards the end a step over step pattern. PT-Balance Assessment Sitting Balance and Reactions Static Sitting Balance Ability Normal Dynamic Sitting Balance Ability Normal Standing Balance and Reactions Static Standing Balance Ability Normal Dynamic Standing Balance Ability Normal Balance Tests Single Limb Standing able to stand at least 10 sec on each colbert Functional Assessments Functional Tests 5 Times Sit to Stand able to complete ~ 6 sec Other Functional Tests Performed Pt is a low fall risk M5 PT-IP Objective Assessments Start: 06/13/20 13:36 Freq: NEEDED Status: Active Protocol: Document 06/13/20 11:22 AB (Rec: 06/13/20 13:46 AB [email or web address]) Orientation Orientation/Cognition Level of Alertness Alert Orientation Name,Age,Birthday,Month,Date, Year,Day of Week,Place, Situation Language Function Ability No Deficits Noted Safety Awareness Understands Safety Issues Memory Description No Deficits Noted Gross Range of Motion Lower Extremity ROM Assessment Within Functional Limits Strength Lower Extremity Strength Assessment Within Functional Limits Coordination Assessment Gross Coordination Gross Coordination WNL Sensation Assessment Sensation Gross Sensation WNL Muscle Tone Muscle Tone WNL Yes M7 PT-IP Assessment and Plan Start: 06/13/20 13:36 Freq: NEEDED Status: Active Protocol: Document 06/13/20 11:22 AB (Rec: 06/13/20 13:46 AB [email or web address]) PT Summary Assessment and Plan Potential Rehabilitation Potential Good Status of Condition at Evaluation Stable Summary Progress Towards Goals Safe For Discharge Assessment Summary PT eval completed and pt is independent with all mobilities. Balance assessment completed and pt is a low fall risk. Pt is at prior level of function and no further PT intervention indicated at this time. Frequency of Treatment Frequency Of Treatment Discharge Recommendations To Nursing Amount of Assist Needed Independent Discharge Recommendations PT Discharge Recommendations Home Transportation Needs at Discharge Private Vehicle
--- NOTE | 2020-06-13 13:11 | CM.IDA ---
Initial DCP Assessment Note Patient is a 44 yo female, resident of [place]. Patient presents w/stroke like symptoms and being worked up for stroke r/o PCP: Unknown Payer: Last Met w/patient this afternoon and introduced role. 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 Patient is up ambulating indp in room. She explains she will have no needs upon DC but admits she is anxious to return home when medically cleared. P: DC home w/family upon DC, no barriers identified at this time to safe DC home. JOSE DAVID Jackson
--- NOTE | 2020-06-13 13:49 | OT.IP.EVAL ---
Past Medical History (Last Reviewed 06/12/20 @ 22:06 by Abelardo Barnes DO) Healthy adult (Acute) Surgical History (Last Reviewed 06/12/20 @ 22:06 by Abelardo Barnes DO) No pertinent past surgical history (Acute) Occupational Therapy Inpatient Evaluation/Re-Eval M1 PT/OT-IP Prior Functional Status Start: 06/13/20 13:35 Freq: NEEDED Status: Active Protocol: Document 06/13/20 13:36 CGR (Rec: 06/13/20 13:49 CGR [email or web address]) Medical Review Prior Functional Status Medical History Reviewed Yes Communication Pt is an effective verbal communicator. Mobility and Gait Pt was IND in all mobility without AD Activities of Daily Living and IADL's Pt was IND in all ADLs. Social History Household Members spouse Living Arrangements House Number of Floors (Floors) Two Floors Number of Stairs To Enter/Railing? 7 steps to enter with B rails and 13 steps up to the second floor with B rails. 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 Diagnosis Onset Date 06/13/20 M3 OT- IP Subjective and Pain Start: 06/13/20 13:35 Freq: Status: Active Protocol: Document 06/13/20 13:36 CGR (Rec: 06/13/20 13:49 CGR [email or web address]) OT- Subjective Occupational Therapy Visit Type Type Initial Evaluation Visit Start Time 13:21 Visit Stop Time 13:33 Total Visit Minutes 12 Occupational Therapy Visit Comments Patient Comments I feel fine except for the L arm. OT Pain Assessment Pain When Pain Assessed At Rest Pain Present Pain Present Denied Pain M4 OT- IP ADL's Start: 06/13/20 13:35 Freq: Status: Active Protocol: Document 06/13/20 13:36 CGR (Rec: 06/13/20 13:49 CGR [email or web address]) OT OWD-Wyra-Fgsaxcr Comments OT Self-Feeding Comments Pt states no difficulty with eating. OT ADL-Grooming Comments OT Grooming Comments Not performed but pt states no difficulty OT ADL-Oral Care Comments Oral Care Comments Not performed but pt states no difficulty OT ADL-Dressing General Eval Lower Body Dressing Ability Independent Areas Needing Assistance Socks Comments OT Dressing Comments seated OT ADL-Toileting General Evaluation Toileting Ability Independent OT ADL-Bathing Comments OT Bathing Comments not performed M5 OT- IP IADL's Start: 06/13/20 13:35 Freq: Status: Active Protocol: Document 06/13/20 13:36 CGR (Rec: 06/13/20 13:49 CGR [email or web address]) OT-Instrumental Activities of Daily Living Deficits IADL Deficits Identified No Deficits Home Safety Awareness Awareness of Need for Assistance at Home Good Awareness Ability to Problem Solve Emergency Able to Problem Solve Situations Medication Management Medication Management No Deficits Identified Money Management Money Management No Deficits Identified Meal Preparation Meal Preparation No Deficits Identified Director Of Mobile Marketing Director Of Mobile Marketing No Deficits Identified Driving Driving Comments 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 M6 OT- IP Functional Cognition Start: 06/13/20 13:35 Freq: Status: Active Protocol: Document 06/13/20 13:36 CGR (Rec: 06/13/20 13:49 CGR [email or web address]) Cognitive Factors Limiting Selfcare Function Cognitive Ability Level of Alertness Alert Patient Orientation Name,Age,Birthday,Month,Date, Year,Day of Week,Place, Situation Attention Span Ability Capable of Focused Attention, Capable of Sustained Attention Ability to Follow Commands Able to Follow Multi-Step Commands Memory Description No Deficits Noted Safety Awareness No Deficits Noted Problem Solving Ability No deficits Noted Executive Function Ability No Deficits Noted Abstract Thinking Ability No Deficits Noted OT- Vision and Hearing OT- Hearing Assessment OT- Hearing Assessment WFL OT- Vision Assessment Visual Attentiveness WFL Occular Pursuits WFL Visual Convergence WFL Visual [place] WFL Vision Assessment Comments Noted limited peripherial vision but this appears to be equal and her baseline. M7 OT- IP Mobility and Balance Start: 06/13/20 13:35 Freq: Status: Active Protocol: Document 06/13/20 13:36 CGR (Rec: 06/13/20 13:49 CGR [email or web address]) OT- Bed Mobility Assessment Rolling Level of Assistance Independent Supine to Sit Supine to Sit Assist Independent Sit to Supine Sit to Supine Assist Independent Scooting Scooting to Edge of Bed Independent Scooting Up and Down in Bed Independent OT-Transfer Assessment Sit to and From Stand Sit to and from Stand Independent Transfers Transfer Ability Independent Technique Transfer Destination Bed,Chair,Toilet Transfer Technique Stand Step Pivot Devices Transfer Assistive Devices None OT- Gait Assessment Gait Gait Assistance Required: Independent Assistive Devices Assistive Device None OT- Balance Assessment Sitting Balance and Reactions Static Sitting Balance Ability Normal Dynamic Sitting Balance Ability Normal Standing Balance and Reactions Static Standing Balance Ability Normal Dynamic Standing Balance Ability Normal M8 OT- IP Objective Assessments Start: 06/13/20 13:35 Freq: Status: Active Protocol: Document 06/13/20 13:36 CGR (Rec: 06/13/20 13:49 CGR [email or web address]) OT Gross Range of Motion Upper Extremity Range of Motion Assessment Within Functional Limits OT Strength Upper Extremity Strength Assessment Within Functional Limits Comments Strength Comments 5/5 OT- Coordination Assessment Upper Extremity Finger to Nose Test Within Functional Limits Finger Tapping Test Within Functional Limits OT-Muscle Tone Assessment Muscle Tone WNL Yes OT Sensation Assessment Location Left Arm Light Touch Intact/Normal Deep Pressure Intact/Normal Proprioception (Position) Intact/Normal Stereognosis Intact/Normal Sensation Description Numbness,Tingling Edema Edema Absent M9 OT- IP Assessment and Plan Start: 06/13/20 13:35 Freq: Status: Active Protocol: Document 06/13/20 13:36 CGR (Rec: 06/13/20 13:49 CGR [email or web address]) OT Summary Assessment and Plan Potential Rehabilitation Potential Excellent Analytic Complexity at Evaluation Low Summary Progress Towards Goals Safe For Discharge Assessment Summary Pt is at her baseline. No further OT needs. Pt educated on tactile sensation to the L arm if tingling and numbness persist. Frequency of Treatment Frequency Of Treatment Discharge Discharge Recommendations OT Discharge Recommendations Home Transportation Needs at Discharge Private Vehicle
--- NOTE | 2020-06-13 15:10 | PC.NURSE ---
Pt states she forgot that 2 weeks ago, she experienced fatigue and fever around 100.7 for a couple of days. She is asking if symptoms could be related to COVID 19. Pt has not been tested. Reported to Dr. West. Orders received and implemented.
--- NOTE | 2020-06-13 15:14 | ST.IPIE ---
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 Patient History Pt is a 44 nonsmoker without chronic medical history presents with the chief complaint of decreased sensation on much of the left side of her body since 0700. She first noticed some numbness and occasional tingling on her chin and then noticed left arm and leg. She occasionally has vague generalized headache in thinks she had some headache this morning but is not persistent. She denies any recent injury nor illness involving fever, chills, runny nose, sore throat or cough. She denies any recent traumatic injury. She denies any change in medications or diet. She denies associated symptoms such as blurred vision, trouble with speech, trouble with coordination or ambulation. She denies any history of the same. Mental Status Mental Status Alert,Responsive,Cooperative Subjective Observations Subjective Pt seen sitting upright in chair next to bedside. Pt appeared to be finishing up her lunch so the ASTRONOMY INSTRUCTOR observed her complete her food. Pt was agreeable to ASTRONOMY INSTRUCTOR entering the room. Pt reported no difficulty with speech, swallowing or cognition. Pt followed all directions and answered all questions appropriately. Pt was 100% intelligible at the conversational level. Oral Motor Lips Function WNL Tongue Function WNL Jaw Function WNL Soft Palate Function WNL Respiration/Phonation Conversation Quality WNL Duration WNL Function WNL Loudness WNL Diadochokinetic Rates Speech Intelligibility Phoneme Severity WNL Word Severity WNL Sentence Severity WNL Conversation Severity WNL Awareness/Strategy Use Description Type of awareness/use Uses consistently Findings Details Motor Speech Function WNL Assessment Details Assessment No speech, swallowing, or cognitive deficits are noted at this time. Pt could answer all questions appropriately, follow directions, was 100% intelligible, and could tolerate regular food/thin liquids with no difficulties. Recommendations Therapy Recommendations Pt does not need ST at this time as no difficulties were noted. Patient/Family Education Education Described results of evaluation,Patient Understanding
[2020-06-13 16:07] LABS: COVID19 -Nasal RAPID Negative (Negative)
--- NOTE | 2020-06-13 17:12 | P.DS_ITS ---
History of Present Illness History of Present Illness Chief complaint: tingling left side of her body Narrative: Written by myself Dr. West: Jovan Montelongo is a 44-year-old female with a past medical history significant for depression, achalasia status post Heller myotomy with secondary GERD and esophageal spasm, chronic daily migraine headaches, and history of multiple concussions who presented to the ED with left-sided paresthesias. The patient reports that she went to check on her horses yesterday morning and began having left-sided jaw numbness and tingling. She continue to work throughout the day and the numbness and tingling slowly progressed down the left side of her body to her neck, arm and leg prompting her to come to the emergency department. She has never had this before. She had no associated meningeal symptoms including neck stiffness, fever, photophobia or phonophobia. She endorses mild headache almost daily and had a headache yesterday morning when her symptoms began. She reports she usually takes ibuprofen or acetaminophen to help alleviate her headaches. She denies associated photophobia or aura but does endorse phonophobia with her daily headaches. She also endorses intermittent episodes of sharp chest pain at left lateral sternal border that lasts seconds and resolves. She had an episode of this last night. She denies vision changes, shortness of breath, diaphoresis, nausea, or pain in her arm, neck or jaw. She has no other complaints. She has history of multiple concussions with her last concussion in November 2018. She is being admitted as observation for TIA rule out. Discharge Providers Provider Date of admission: 06/13/20 01:59 Discharge Date: 06/13/20 Consults: 06/13/20 08:01 Consult to Physical Therapy Evaluate & Treat Comment: Physician Instructions: Evaluate and Treat Consult to Speech Therapy Evaluate & Treat Comment: Physician Instructions: Evaluate and treat 06/13/20 11:30 Consult to Occupational Therapy Evaluate & Treat Comment: Physician Instructions: Evaluate and treat Discharge provider: Payal West DO Summary Hospital Course Discharge Diagnosis: 1. Acute left-sided whole body paresthesias, present on admission. Resolving. 2. Chronic daily migraine headache in setting of history of multiple concussions, chronic, present on admission. Stable. 3. Depression, chronic, present on admission. Stable. 4. Achalasia status post Heller myotomy with secondary GERD and esophageal spasm, chronic, present on admission. Stable. Hospital Course: Jovan Montelongo is a 44-year-old female with a past medical history significant for depression, achalasia status post Heller myotomy with secondary GERD and esophageal spasm, chronic daily migraine headaches, and history of multiple concussions who presented to the ED with left-sided paresthesias. 1. Acute left-sided whole body paresthesias, present on admission. Resolving. -Patient presented with abrupt onset left-sided paresthesia of numbness and tingling that started in left face and jaw and progressively traveled to entire left side of body. -Differential diagnosis includes: Likely complex migraine. Ruled out CVA. -NIH score 1. Continued to monitor neurological status frequently. -EKG demonstrated normal sinus rhythm without acute ischemic changes such as ST elevation or depression. Troponin negative < 0.012. Continued to monitor closely on telemetry. Patient did not demonstrate any ectopy throughout hospitalization. -CT brain without contrast did not demonstrate any acute intracranial abnormalities. CTA head and neck did not demonstrate any acute intracranial or neck abnormalities including occlusions, stenoses or aneurysms. -MR stroke protocol did not demonstrate any acute intracranial abnormalities or head neck stenoses, occlusions or aneurysms. -Echocardiogram was unremarkable other than mild dilation of left atrium and did not demonstrate intra-atrial shunt or embolic source. -Risk stratified with fasting lipid panel demonstrated excellent lipid control with: Total cholesterol 189, triglycerides 76, LDL 84, and HDL 90 and hemoglobin A1c which was normal at 5.0%. Due to low risk of cardiovascular disease did not initiate aspirin or statin therapy for stroke prevention. -Consulted speech therapy, occupational therapy and physical therapy evaluation and treatment in which there were no perceived deficits and patient was discharged home with no needs. -due to patient's history of multiple concussions and chronic mild daily migraine headaches with now probable complex migraine headache recommended [facility] for evaluation and treatment. -Patient is highly anxious due to mother's history cardiovascular disease with recent HI and CVA and would like to have a stress test completed for which she is low probability and will defer to PCP. 2. Chronic daily migraine headache in setting of history of multiple concussions, chronic, present on admission. Stable. -Patient has a history of multiple concussions and chronic mild daily headaches. Patient takes ibuprofen or acetaminophen for relief for which she did not require throughout hospitalization. -Patient has never been evaluated by neurology and recommend neurology evaluation and treatment for headache and possible post concussive syndrome. 3. Depression, chronic, present on admission. Stable. -Continued home duloxetine 60 mg daily. 4. Achalasia status post Heller myotomy with secondary GERD and esophageal spasm, chronic, present on admission. Stable. -Patient does not take any medications for acid reflux. Could consider PPI or H2 antagonist if necessary in future. Exam Vital Signs (past 8 hours): - 06/13/20 11:36 06/13/20 15:44 Temperature 97.2 F L 98.4 F Pulse Rate 63 74 Respiratory Rate 18 18 Blood Pressure 125/68 125/70 Pulse Oximetry 100 99 Oxygen Delivery Method Room Air Oxygen Flow Rate 0 Narrative Exam Narrative: General: Middle-aged female sitting at bedside acute distress, well-developed, well-nourished, appropriately interactive. HEENT: Normocephalic, atraumatic. External ears without defect. Pupils equal, round, and reactive to light and accommodation. Anicteric sclerae, moist conjunctivae, and no lid lag. Oropharynx free of erythema and cobble stoning with moist mucosa. Neck: Supple with full range of motion. No jugular venous distension. No bruits. No lymphadenopathy or thyromegaly. Cardiovascular: Regular rate and rhythm without murmurs, rubs, or gallops appreciated. Pulmonary: Clear to auscultation bilaterally without crackles, wheezes, or rhonchi. Normal respiratory effort with no use of accessory muscles. Abdomen: Soft, bowel sounds present, nontender, nondistended. No hepat osplenomegaly or masses appreciated. Extremities: No clubbing, cyanosis, or edema. Skin: Normal temperature, turgor, and texture; no rash, ulcers, or subcutaneous nodules appreciated. Neurological: Cranial nerves grossly intact. Normal muscle strength, tone, and bulk. Reflexes, coordination, and sensory function within normal limits. Left upper and lower extremity paresthesias, numbness and tingling improving but not yet resolved. Now with normal sensation to pinprick, light touch and temper ature. No known gait impairment. Psychiatric: Normal mood and affect. Alert and oriented to person, place, and time. Objective Labs Result Diagrams: 06/13/20 10:00 06/13/20 10:00 Labs: Laboratory Results - last 24 hr 06/12/20 06/12/20 06/12/20 21:01 21:01 21:01 WBC 5.9 RBC 4.46 Hgb 13.8 Hct 40.9 MCV 91.7 MCH 31.0 MCHC 33.8 RDW 13.1 Plt Count 273 Neut % (Auto) 54.8 Lymph % (Auto) 38.8 [place] % (Auto) 5.5 Eos % (Auto) 0.0 L Baso % (Auto) 0.9 Neut # (Auto) 3200 Lymph # (Auto) 2300 [place] # (Auto) 300 Eos # (Auto) 0 Baso # (Auto) 100 PT 11.5 INR 1.0 APTT 30 Sodium 139 Potassium 3.3 L Chloride 106 Carbon Dioxide 26 BUN 21 H Creatinine 0.88 Estimated GFR > 60.0 BUN/Creatinine Ratio 23.9 H Glucose 85 Hemoglobin A1c Calcium 9.7 Magnesium Total Bilirubin AST ALT Alkaline Phosphatase Total Protein Albumin Globulin Albumin/Globulin Ratio Triglycerides Cholesterol LDL Cholesterol, Calc HDL Cholesterol Nasal Screen MRSA (PCR) U Opiates 300ng/mL cut Ur Oxycodone Screen Urine Methadone Screen Ur Barbiturates Screen U Tricyclic Antidepress Ur Phencyclidine Scrn Ur Amphetamines Screen U Methamphetamines Scrn Ur MDMA Scrn (Ecstasy) U Benzodiazepines Scrn Urine Cocaine Screen U Marijuana (THC) Screen COVID-19 PCR 06/12/20 06/13/20 06/13/20 22:49 02:10 10:00 WBC 3.9 L RBC 4.34 Hgb 13.5 Hct 39.9 MCV 91.9 MCH 31.2 MCHC 33.9 RDW 13.1 Plt Count 225 Neut % (Auto) 50.6 Lymph % (Auto) 41.5 H [place] % (Auto) 7.1 Eos % (Auto) 0.0 L Baso % (Auto) 0.8 Neut # (Auto) 2000 Lymph # (Auto) 1600 [place] # (Auto) 300 Eos # (Auto) 0 Baso # (Auto) 0 PT INR APTT Sodium Potassium Chloride Carbon Dioxide BUN Creatinine Estimated GFR BUN/Creatinine Ratio Glucose Hemoglobin A1c Calcium Magnesium Total Bilirubin AST ALT Alkaline Phosphatase Total Protein Albumin Globulin Albumin/Globulin Ratio Triglycerides Cholesterol LDL Cholesterol, Calc HDL Cholesterol Nasal Screen MRSA (PCR) Positive for mrsa H U Opiates 300ng/mL cut Negative Ur Oxycodone Screen Negative Urine Methadone Screen Negative Ur Barbiturates Screen Negative U Tricyclic Antidepress Negative Ur Phencyclidine Scrn Negative Ur Amphetamines Screen Negative U Methamphetamines Scrn Negative Ur MDMA Scrn (Ecstasy) Negative U Benzodiazepines Scrn Negative Urine Cocaine Screen Negative U Marijuana (THC) Screen Negative COVID-19 PCR 06/13/20 06/13/20 06/13/20 10:00 10:00 10:00 WBC RBC Hgb Hct MCV MCH MCHC RDW Plt Count Neut % (Auto) Lymph % (Auto) [place] % (Auto) Eos % (Auto) Baso % (Auto) Neut # (Auto) Lymph # (Auto) [place] # (Auto) Eos # (Auto) Baso # (Auto) PT INR APTT Sodium 137 Potassium 3.8 Chloride 109 H Carbon Dioxide 27 BUN 17 Creatinine 0.80 Estimated GFR > 60.0 BUN/Creatinine Ratio 21.3 Glucose 64 L Hemoglobin A1c 5.0 Calcium 9.1 Magnesium 1.9 Total Bilirubin 1.2 AST 28 ALT 21 Alkaline Phosphatase 46 Total Protein 6.6 Albumin 4.1 Globulin 2.5 Albumin/Globulin Ratio 1.6 Triglycerides 76 Cholesterol 189 LDL Cholesterol, Calc 84 HDL Cholesterol 90 H Nasal Screen MRSA (PCR) U Opiates 300ng/mL cut Ur Oxycodone Screen Urine Methadone Screen Ur Barbiturates Screen U Tricyclic Antidepress Ur Phencyclidine Scrn Ur Amphetamines Screen U Methamphetamines Scrn Ur MDMA Scrn (Ecstasy) U Benzodiazepines Scrn Urine Cocaine Screen U Marijuana (THC) Screen COVID-19 PCR 06/13/20 14:40 WBC RBC Hgb Hct MCV MCH MCHC RDW Plt Count Neut % (Auto) Lymph % (Auto) [place] % (Auto) Eos % (Auto) Baso % (Auto) Neut # (Auto) Lymph # (Auto) [place] # (Auto) Eos # (Auto) Baso # (Auto) PT INR APTT Sodium Potassium Chloride Carbon Dioxide BUN Creatinine Estimated GFR BUN/Creatinine Ratio Glucose Hemoglobin A1c Calcium Magnesium Total Bilirubin AST ALT Alkaline Phosphatase Total Protein Albumin Globulin Albumin/Globulin Ratio Triglycerides Cholesterol LDL Cholesterol, Calc HDL Cholesterol Nasal Screen MRSA (PCR) U Opiates 300ng/mL cut Ur Oxycodone Screen Urine Methadone Screen Ur Barbiturates Screen U Tricyclic Antidepress Ur Phencyclidine Scrn Ur Amphetamines Screen U Methamphetamines Scrn Ur MDMA Scrn (Ecstasy) U Benzodiazepines Scrn Urine Cocaine Screen U Marijuana (THC) Screen COVID-19 PCR Negative Discharge Plan Discharge Plan Patient Disposition: Home Discharge comment: You are being discharged home. Your evaluation for numbness and tingling or paresthesias of the left side of your body was negative for stroke, brain tumor, lesions such as MS, encephalitis or infection of the brain, etc. Your CT brain without contrast, your CT angiogram head and neck and MRI of head and neck were all normal and did not demonstrate any stenoses, occlusions, or aneurysm. You likely have a complex migraine and recommend a referral to neurology to be evaluated and treated for migraine headache especially given your concussion history. Your echocardiogram was unremarkable other than a mildly dilated left atrium which could be a congenital abnormality versus related to sleep apnea and may consider a sleep study. Your EKG was normal and did not demonstrate any sign of heart attack or impending blockage. Your heart enzyme was negative. Your sharp chest pain on your left sternal border is likely costochondritis or Prinzmetal angina. You may consider having your primary care physician order a stress test due to family history and chest pain but are very low risk. Your lipid panel was unremarkable and normal. Your hemo globin A1c was normal and you are not diabetic. 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 Your coronavirus test was negative. Discharge orders & Medications Prescriptions: Continued duloxetine 60 mg capsule,delayed release(DR/EC) 60 mg PO DAILY RF: 0 Discharge Health Status Multidrug resistant organism: MRSA Diet/Activity/Treatments Diet: Diet as Tolerated Activity: Activity as tolerated Visit Report/Discharge Packet Instructions: DI for Migraine Visit Report Forms: Patient Portal/API, Stroke Signs & Symptoms Discharge Data Attending Provider: Pearl Quinonez Admit Date/Time: 06/13/20 01:59 Discharges patient from system. Discharge Date/Time: 06/13/20 18:01
[2020-06-13 17:23] LABS: Troponin I < 0.012 ng/mL (0.01-0.034)
== END 2020-06-13 18:01 | disposition home or self-care (01) ==
LOC: ED 06-13 01:19 → ICU 06-13 02:02
PROVIDERS: Internal Medicine; Admitting Provider Family Medicine; Emergency Provider Emergency Medicine; Visit Provider Family Medicine
DX: R29.818 Other symptoms and signs involving the nervous system (principal); R20.2 Paresthesia of skin; F32.9 Major depressive disorder, single episode, unspecified; K21.9 Gastro-esophageal reflux disease without esophagitis; K22.0 Achalasia of cardia; G43.909 Migraine, unspecified, not intractable, without status migrainosus; Z22.322 Carrier or suspected carrier of Methicillin resistant Staphylococcus aureus; Z11.59 Encounter for screening for other viral diseases
CPT/HCPCS: 36415; 70450; 70496; 70498; 70548; 70553; 80048; 80053; 80061; 80305; 81003; 82962; 83036; 83735; 84484; 85025; 85610; 85730; 87635; 87797; 92522; 93005; 93306; 96361; 96372; 96374; 96375; 97161; 97165; 99285; G0378; A9579; J1650; J1885; J2765; Q9967

== ENCOUNTER 2021-06-04 17:23 | Emergency (ER) | payer OTHER, SELFPAY ==
[2020-06-13 02:02] VITALS: BMI 23.1
[2021-06-04 17:30] VITALS: BP 153/95; PULSE 69; RESP 18; TEMP 36.5; O2SAT 98; BMI 22.3
[2021-06-04] MEDS: ONDANSETRON 4 MG ODT SL (19:14)
[2021-06-04] MEDS: dexAMETHasone 4 MG TABLET 8 MG PO (19:15)
[2021-06-04] MEDS: OXYCODONE/ACETAMINOPHEN 5/325 TABLET 1 TAB PO (19:15)
[2021-06-04] MEDS: KETOROLAC 30 MG/ML VIAL IM (19:16)
[2021-06-04 20:46] VITALS: BP 125/65; PULSE 70; RESP 14; O2SAT 98
[2021-06-04] MEDS: ONDANSETRON 4 MG ODT PREPACK 1 BOTTLE MISC (20:55)
[2021-06-04] MEDS: OXYCODONE/APAP 5/325 PREPACK 1 BOTTLE MISC (20:55)
--- NOTE | 2021-06-05 06:24 | ED_ITS ---
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 She reports that she is simply bent down and felt a significant strain in her low back that has been worsening ever since. Happened earlier today. She is noticing some mild decreased sensation in the left posterior calf and difficulty walking due to pain. She describes no other significant findings. She is having no perineal numbness, no difficulty with voiding. No fevers, cough, chills, abdominal pain. She has no history of cancers or IV drug use. There has been no recent trauma. She has never had similar episode of back pain. Related Data Home Medications Medication Instructions Recorded Confirmed duloxetine 60 mg capsule,delayed 60 mg PO DAILY 06/13/20 06/13/20 release Previous Rx's Medication Instructions Recorded dexamethasone 4 mg tablet 8 mg PO DAILY #4 tab 06/04/21 (Decadron) diazepam 5 mg tablet 5 mg PO BID PRN #10 tab 06/04/21 ondansetron HCl 4 mg tablet 4 mg PO Q6H PRN #14 tab 06/04/21 (Zofran) oxycodone-acetaminophen 5 mg-325 1 tab PO Q6H PRN #10 tab 06/04/21 mg tablet Allergies Allergy/AdvReac Type Severity Reaction Status Date / Time Penicillins Allergy Verified 06/04/21 17:58 Review of Systems Review of Systems Narrative: Remainder of complete review of systems is otherwise unremarkable except for that included in the HPI. Patient History Medical History Achalasia Chronic daily headache Depression Esophageal spasm GERD (gastroesophageal reflux disease) Healthy adult History of multiple concussions Surgical History History of esophageal surgery Family History Mother CAD (coronary artery disease) Stroke Hyperlipidemia Hypertension Heart attack Father Healthy adult Sister Hypertension Social History household members: spouse Smoking Status: Never smoker Smoking Status: Never smoker alcohol intake frequency: 0-2 drinks per day Substance Use Type: does not use Exam Narrative Exam Narrative: General: Healthy appearing, in no acute distress as long she does not move.. Able to give a complete and coherent history. Well-nourished well-developed HEENT: Moist mucous membranes, normal sclera with reactive pupils, Respiratory: Lungs are clear to auscultation, no wheezing no rales no rhonchi. Full and symmetrical air movement Cardiac: Regular rate and rhythm no murmurs no bruits Abdomen: Soft, nontender, good bowel tones, no flank pain Skin: Warm and dry, no rashes Neurologic: Grossly neurologically intact with no obvious asymmetries or abnormalities. Symmetrical lower extremity reflexes of patella isn't ankle jerks. No significant objective neurologic findings appreciated in either lower extremity Spine: No midline point tenderness or rash. She does have bilateral paraspinal muscle spasm in the lumbar area. Extremities: No trauma, well perfused Psych: Cooperative, appropriate insight and affect Initial Vital Signs Initial Vital Signs: Vital Signs Temperature 97.7 F 06/04/21 17:30 Pulse Rate 69 06/04/21 17:30 Respiratory Rate 18 06/04/21 17:30 Blood Pressure 153/95 H 06/04/21 17:30 Pulse Oximetry 98 06/04/21 17:30 Course Orders Ordered: Discontinued Medications Dexamethasone (Dexamethasone 4 Mg Tablet) 8 mg PO NOW ONE Stop: 06/04/21 19:10 Last Admin: 06/04/21 19:15 Dose: 8 mg Documented by: [email or web address] Ketorolac Tromethamine (Ketorolac 30 Mg/Ml Vial) 30 mg IM NOW ONE Stop: 06/04/21 19:03 Last Admin: 06/04/21 19:16 Dose: 30 mg Documented by: [email or web address] Ondansetron HCl (Ondansetron 4 Mg Odt) 4 mg SL NOW ONE Stop: 06/04/21 19:03 Last Admin: 06/04/21 19:14 Dose: 4 mg Documented by: [email or web address] Ondansetron HCl (Ondansetron 4 Mg Odt Prepack) 1 bottle MISC SEEINSTR ONE Stop: 06/04/21 20:49 Last Admin: 06/04/21 20:55 Dose: 1 bottle Documented by: [email or web address] Oxycodone/Acetaminophen (Oxycodone/Acetaminophen 5/325 Tablet) 1 tab PO NOW ONE Stop: 06/04/21 19:03 Last Admin: 06/04/21 19:15 Dose: 1 tab Documented by: JAVIER Oxycodone/Acetaminophen (Oxycodone/Apap 5/325 Prepack) 1 bottle MISC SEEINSTR ONE Stop: 06/04/21 20:49 Last Admin: 06/04/21 20:55 Dose: 1 bottle Documented by: JAVIER MDM - Back Pain/Injury MDM Narrative Medical decision making narrative: 45-year-old woman who bent over and felt an immediate pain in her low back earlier today. No ?red flag? signs to suggest further workup is required. She is given IM Toradol and single Percocet along with Zofran with her history of nausea related to narcotic use. Pain is significantly improved but still present. She is able to get up and walk to the bathroom. No progressive symptoms or progressive numbness. Went over signs symptoms of low back strain. Will send her home with instructions to use ibuprofen and Tylenol, Percocet for severe pain and Valium for muscle spasm with the benzodiazepine and narcotics being offset by at least 4 hours for safety sake. Questions are answered she is safe for home discharge Discharge Plan Departure Patient Disposition: Home Clinical Impression: Strain of lumbar region Qualifiers: Encounter type: initial encounter Qualified Code(s): S39.012A - Strain of muscle, fascia and tendon of lower back, initial encounter Instructions: DI for Low Back Pain Activity Restrictions/Additional Instructions: Thank you for coming in tonight, I am so sorry that you needed to. Fortunately, you do not have any of the ?red flags? for concerning back pain. I believe this is normal human back pain and it will get better Using 400 mg of ibuprofen (2 [id number] pills) and 1 Tylenol every 6 hours can be very helpful in controlling pain. For severe pain using 400 mg of ibuprofen, 1 Percocet and 1 Zofran to prevent nausea can be helpful I am also going to give you a prescription of diazepam/Valium. This is an excellent muscle relaxer. Please do not mix the Valium and the Percocet, leave about 4 hours between dosing for safety. Being up and moving will help you heal faster. You can also try ice to your low back for the 1st couple of days to help with inflammation. After that alternating ice and heat to help with muscle spasm can be helpful. If you have new or worsening symptoms, please feel free to return to the ER I hope you heal quickly Prescriptions: New diazepam 5 mg tablet 5 mg PO BID PRN (Reason: muscle spasm) Qty: 10 RF: 0 oxycodone-acetaminophen 5-325 mg tablet 1 tab PO Q6H PRN (Reason: pain) Qty: 10 RF: 0 ondansetron HCl [Zofran] 4 mg tablet 4 mg PO Q6H PRN (Reason: nausea and vomiting) Qty: 14 RF: 0 dexamethasone [Decadron] 4 mg tablet 8 mg PO DAILY Qty: 4 RF: 0 No Action duloxetine 60 mg capsule,delayed release(DR/EC) 60 mg PO DAILY RF: 0
== END 2021-06-04 21:02 | disposition home or self-care (01) ==
PROVIDERS: Emergency Provider Emergency Medicine
DX: S39.012A Strain of muscle, fascia and tendon of lower back, initial encounter (principal); X50.1XXA Overexertion from prolonged static or awkward postures, initial encounter
CPT/HCPCS: 96372; 99283; J1885

== ENCOUNTER → 2021-06-07 15:43 | Outpatient (CLI) | payer OTHER, SELFPAY ==
[2020-06-13 02:02] VITALS: BMI 23.1
--- NOTE | 2021-06-07 | DI.RAD.S_ITS ---
PROCEDURE: XR HAND LT MIN 3V INDICATIONS: PAIN IN LEFT HAND TECHNIQUE: 3 views of the hand(s) acquired. COMPARISON: None. FINDINGS: Bones: No fractures or dislocations. Carpal bones are normally aligned. No suspicious bony lesions. Soft tissues: No suspicious soft tissue calcifications. IMPRESSION: No definite radiographic abnormality. If pain persists with conservative management, consider cross sectional imaging such as CT or MRI for further assessment. Dictated by: Tremaine Ziegler [facility] Interpreted: Frandy Morris MD on 06/07/2021 at 16:00 Transcribed by: GUS on 06/07/2021 at 16:01 Approved by: Frandy Morris M.D. on 06/07/2021 at 17:17
== END ==
PROVIDERS: Referring Provider Physician Assistant; Visit Provider Physician Assistant
DX: M79.642 Pain in left hand (principal)
CPT/HCPCS: 73120

== ENCOUNTER → 2021-11-26 09:31 | Outpatient (CLI) | payer OTHER, SELFPAY ==
[2020-06-13 02:02] VITALS: BMI 23.1
--- NOTE | 2021-11-26 09:33 | DI.MG.S_ITS ---
BILATERAL DIGITAL SCREENING MAMMOGRAM 3D/2D WITH CAD: 11/26/2021 CLINICAL: Routine screening. Baseline exam. No prior exams were available for comparison. The tissue of both breasts is heterogeneously dense. This may lower the sensitivity of mammography. Current study was also evaluated with a Computer Aided Detection (CAD) system. No significant masses, calcifications, or other findings are seen in either breast. IMPRESSION: NEGATIVE There is no mammographic evidence of malignancy. A 1 year screening mammogram is recommended. This exam was interpreted at Station ID: [id number]. NOTE: For mammograms, a report in lay terms will be sent to the patient. Approximately 15% of breast malignancies will not be visualized mammographically. In the management of a palpable breast mass, a negative mammogram must not discourage biopsy of a clinically suspicious lesion. Electronically Signed By: Abebe Hernandez acr/cinthya:11/26/2021 10:58:01 letter sent: Normal Exam ACR BI-RADS Category 1: Negative [id number]
== END ==
PROVIDERS: PCP Physician Assistant; Referring Provider Physician Assistant; Visit Provider Physician Assistant
DX: Z12.31 Encounter for screening mammogram for malignant neoplasm of breast (principal)
CPT/HCPCS: 77063; 77067

== ENCOUNTER 2022-02-02 19:46 | Emergency (ER) | payer OTHER, SELFPAY ==
[2020-06-13 02:02] VITALS: BMI 23.1
[2022-02-02 20:03] VITALS: BP 134/75; PULSE 62; RESP 18; TEMP 37.1; O2SAT 99; BMI 22.3
--- NOTE | 2022-02-02 22:00 | DI.RAD.S_ITS ---
PROCEDURE: XR FINGER RT MIN 2V INDICATIONS: Injury/bite/possible foreign body TECHNIQUE: AP hand, 2 views of the right 1st finger(s) acquired. COMPARISON: None. FINDINGS: Bones: No fractures or dislocations. No suspicious bony lesions. Soft tissues: No suspicious soft tissue calcifications. No radiodense foreign body. IMPRESSION: No fracture. No osseous lesion. If symptoms and/or clinical suspicion for pathology persists, further assessment with repeat radiographs (7-10 days) or advanced imaging (e.g. CT, MRI or bone scan) should be considered. Dictated by: Mari Manzano MD, PhD on 02/02/2022 at 22:21 Approved by: Mari Manzano MD, PhD on 02/02/2022 at 22:22
--- NOTE | 2022-02-02 22:02 | ED_ITS ---
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 She did wash her hands thoroughly worked before arriving here. As small scratch weeks on the dorsum of the hand. At the right at the ulnar surface of the IP joint there is a small puncture wound. At the pad of the 3rd digit on the left hand there is a small puncture wound as well. Patient is allergic to penicillin. Has had antibiotics in the past for animal bites in the past. Patient states she has had rabies vaccine/immunizations. She states that cat is vaccinated. Related Data Home Medications Medication Instructions Recorded Confirmed duloxetine 60 mg capsule,delayed 60 mg PO DAILY 06/13/20 06/13/20 release Previous Rx's Medication Instructions Recorded dexamethasone 4 mg tablet 8 mg PO DAILY #4 tab 06/04/21 (Decadron) diazepam 5 mg tablet 5 mg PO BID PRN #10 tab 06/04/21 ondansetron HCl 4 mg tablet 4 mg PO Q6H PRN #14 tab 06/04/21 (Zofran) oxycodone-acetaminophen 5 mg-325 1 tab PO Q6H PRN #10 tab 06/04/21 mg tablet clindamycin HCl 150 mg capsule 450 mg PO TID #63 cap 02/02/22 sulfamethoxazole 800 1 tab PO BID #14 tab 02/02/22 mg-trimethoprim 160 mg tablet (Bactrim DS) Allergies Allergy/AdvReac Type Severity Reaction Status Date / Time Penicillins Allergy Verified 06/04/21 17:58 Review of Systems Review of Systems Narrative: GENERAL: Denies chills, fatigue, malaise, fever, sweats. HEENT: Denies sinus pain, ear pain, sore throat RESPIRATORY: Denies dyspnea, cough CARDIOVASCULAR: Denies chest pain, palpitations GASTROINTESTINAL: Denies nausea, vomiting, abdominal pain : Denies dysuria, frequency, hematuria MUSCULOSKELETAL: denies muscle or bony pain SKIN: Denies rash, skin lesions, positive for skin injury NEUROLOGIC: Denies weakness, numbness ROS Unobtainable: All systems reviewed & are unremarkable except as noted in HPI and below Patient History Medical History Achalasia Chronic daily headache Depression Esophageal spasm GERD (gastroesophageal reflux disease) Healthy adult History of multiple concussions Surgical History History of esophageal surgery Family History Mother CAD (coronary artery disease) Stroke Hyperlipidemia Hypertension Heart attack Father Healthy adult Sister Hypertension Social History household members: spouse Smoking Status: Never smoker Smoking Status: Never smoker alcohol intake frequency: 0-2 drinks per day Substance Use Type: does not use Exam Narrative Exam Narrative: GENERAL: in no distress, not toxic not dyspneic HEAD: Normocephalic. EXTREMITIES: No gross deformities. Examination left hand. There is a small puncture wound to the pad of the 3rd digit. No active bleeding. No foreign bodies seen or palpable. Examination of the right hand. There is a small puncture wound at the ulnar surface of the IP joint of the right thumb. No active bleeding no oozing or erythema. Mild tenderness to touch. No foreign body seen. On the dorsum of each hand small abrasion/scratch weeks. No active bleeding. Very superficial scratch weeks. NEURO: AOx4. SKIN: Warm and dry PSYCH: Not anxious, is cooperative Initial Vital Signs Initial Vital Signs: Vital Signs Temperature 98.7 F 02/02/22 20:03 Pulse Rate 62 02/02/22 20:03 Respiratory Rate 18 02/02/22 20:03 Blood Pressure 134/75 02/02/22 20:03 Pulse Oximetry 99 02/02/22 20:03 Course Course Course Narrative: No new issues during course of stay Orders Ordered: ED Orders 02/02/22 22:00 XR finger RT min 2V Stat Discontinued Medications Clindamycin HCl (Clindamycin 150 Mg Capsule) 450 mg PO NOW ONE Stop: 02/02/22 22:02 Last Admin: 02/02/22 22:08 Dose: 450 mg Documented by: DYLLAN Diphtheria/Tetanus/Acell Pertussis (Tet,Diph,Pertuss(Acell),Vac/Pf 0.5 Ml Syringe) 0.5 ml IM .ONCE ONE Stop: 02/02/22 22:01 Last Admin: 02/02/22 22:07 Dose: 0.5 ml Documented by: DYLLAN Trimethoprim/Sulfamethoxazole (Trimeth/Sulfa 160/800 (Ds) Tablet) 1 tab PO NOW ONE Stop: 02/02/22 22:02 Last Admin: 02/02/22 22:08 Dose: 1 tab Documented by: DYLLAN Reevaluation(s) Reevaluation #1: Reviewed x-ray with patient. Agrees for discharge home return precautions reviewed. She desires discharge home. Time: 22:36 Vital Signs Vital signs: Vital Signs - 8 hr 02/02/22 20:03 Temperature 98.7 F Pulse Rate 62 Respiratory Rate 18 Blood Pressure 134/75 Pulse Oximetry 99 MDM - Animal Bite Differential Diagnosis Differential diagnosis: Likely cat bite MDM Narrative Medical decision making narrative: Appropriate for discharge home. Exam and imaging are reassuring. Return pr ecautions reviewed patient. Antibiotics started. The L and I form completed. Patient does have primary care to follow up with. Discharge Plan Departure Patient Disposition: Home Clinical Impression: Cat bite Instructions: DI for Cat Bite Activity Restrictions/Additional Instructions: Clean skin injuries daily with warm soap and water and then apply thin layer of topical antibiotic. Prescription antibiotics have been provided and sent to your [facility] in [place] Return if worse if any questions or concerns. L and I forms have been completed. See your family doctor next week for re-evaluation of your skin injuries. Prescriptions: New clindamycin HCl 150 mg capsule 450 mg PO TID Qty: 63 0RF sulfamethoxazole-trimethoprim [Bactrim DS] 800-160 mg tablet 1 tab PO BID Qty: 14 0RF No Action duloxetine 60 mg capsule,delayed release(DR/EC) 60 mg PO DAILY 0RF diazepam 5 mg tablet 5 mg PO BID PRN (Reason: muscle spasm) Qty: 10 0RF oxycodone-acetaminophen 5-325 mg tablet 1 tab PO Q6H PRN (Reason: pain) Qty: 10 0RF ondansetron HCl [Zofran] 4 mg tablet 4 mg PO Q6H PRN (Reason: nausea and vomiting) Qty: 14 0RF dexamethasone [Decadron] 4 mg tablet 8 mg PO DAILY Qty: 4 0RF Referrals: Dede Leigh, NATHANIELC [Primary Care Provider] -
[2022-02-02] MEDS: TET,DIPH,PERTUSS(ACELL),VAC/PF 0.5 ML SYRINGE IM (22:07)
[2022-02-02] MEDS: TRIMETH/SULFA 160/800 (DS) TABLET 1 TAB PO (22:08)
[2022-02-02] MEDS: CLINDAMYCIN 150 MG CAPSULE 450 MG PO (22:08)
== END 2022-02-02 22:42 | disposition home or self-care (01) ==
PROVIDERS: Emergency Provider Emergency Medicine; PCP Physician Assistant
DX: S61.253A Open bite of left middle finger without damage to nail, initial encounter (principal); S61.051A Open bite of right thumb without damage to nail, initial encounter; W55.01XA Bitten by cat, initial encounter; Y99.0 Civilian activity done for income or pay; Z23 Encounter for immunization
CPT/HCPCS: 73140; 90471; 99283; 90715

== ENCOUNTER 2025-10-02 16:27 | Emergency (ER) | payer OTHER, SELFPAY ==
[2020-06-13 02:02] VITALS: BMI 23.1
[2025-10-02 16:34] VITALS: BP 122/62; PULSE 63; RESP 16; TEMP 36.6; O2SAT 100; BMI 21.4
--- NOTE | 2025-10-02 16:41 | DI.CT.S_ITS ---
PROCEDURE: CT CERVICAL SPINE WO CON INDICATIONS: head butted by horse TECHNIQUE: Noncontrast 3 mm thick sections acquired from the skull base to the T4 level. Sagittal and coronal reformats were then constructed. For radiation dose reduction, the following was used: automated exposure control, adjustment of mA and/or kV according to patient size. COMPARISON: [facility], CT, CT CERVICAL SPINE WO CON, 12/04/2018, 18:41. FINDINGS: Image quality: Diagnostic Bones: Trace retrolisthesis of C3 on C4 and anterolisthesis of C4 on C5 likely degenerative. Vertebral body heights are well maintained. No traumatic subluxation. Mild overall degenerative changes Soft tissues: No pathologic prevertebral swelling. IMPRESSION: No displaced fracture or traumatic subluxation. Mild spondylosis. If there is high concern for further derangement, consider MRI evaluation. Dictated by: Devon Hector M.D. on 10/02/2025 at 17:05 Approved by: Devon Hector M.D. on 10/02/2025 at 17:08
--- NOTE | 2025-10-02 16:41 | DI.CT.S_ITS ---
PROCEDURE: CT HEAD/BRAIN WO CON INDICATIONS: Head butted by horse, hit on head on post TECHNIQUE: Noncontrast 4.5 mm thick angled axial sections acquired from the foramen magnum to the vertex, with coronal and sagittal reformats. For radiation dose reduction, the following was used: automated exposure control, adjustment of mA and/or kV according to patient size. COMPARISON: [facility], CT, CT HEAD/BRAIN WO CON, 06/12/2020, 20:46. FINDINGS: Image quality: Diagnostic CSF spaces: Basal cisterns are patent. Lateral ventricles are symmetric. Volume: Vascular calcifications. Periventricular white matter disease is commonly seen with chronic microangiopathy. Volume loss is present. These findings are [id number] Brain: No acute hemorrhage. No gross loss of perez-white differentiation Craniofacial structures: No significant paranasal sinus opacity. IMPRESSION: No acute intracranial abnormality. Dictated by: Devon Hector M.D. on 10/02/2025 at 17:04 Approved by: Devon Hector M.D. on 10/02/2025 at 17:05
--- NOTE | 2025-10-02 16:47 | ED.HEATRA ---
HPI - Head Injury <Karen Hearn PA-C - Last Filed: 10/02/25 19:46> General Chief complaint: Head Injury Stated complaint: Head injury Time Seen by Provider: 10/02/25 16:44 Source: patient Mode of arrival: Ambulatory History of Present Illness HPI Narrative: Ms. Montelongo is a pleasant 50 year old female with a history of documented CVA who presents to the emergency department after being head-butted by her horse. Patient reports that her horse was close by and shook it is head hitting her in the head on her right ear causing her head to then go into a wall in the left side. She therefore has pain to the right side of her head/ear and also the left side of her forehead. She did not lose consciousness and she is not on blood thinners. No neck pain. She has felt slightly nauseous and ?dazed? since this occurred about 2 hours prior to arrival. No vomiting, visual disturbance or other concerns. 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 Related Data Home Medications ?Medication ?Instructions ?Recorded ?Confirmed duloxetine 60 mg capsule,delayed 60 mg PO DAILY 06/13/20 06/13/20 release Previous Rx's ?Medication ?Instructions ?Recorded dexamethasone 4 mg tablet 8 mg (2 x 4 mg) PO DAILY #4 tabs 06/04/21 (Decadron) diazepam 5 mg tablet 5 mg PO BID PRN muscle spasm #10 06/04/21 tabs ondansetron HCl 4 mg tablet 4 mg PO Q6H PRN nausea and 06/04/21 (Zofran) vomiting #14 tabs oxycodone-acetaminophen 5 mg-325 1 tab PO Q6H PRN pain #10 tabs 06/04/21 mg tablet clindamycin HCl 150 mg capsule 450 mg (3 x 150 mg) PO TID #63 caps 02/02/22 sulfamethoxazole 800 1 tab PO BID #14 tabs 02/02/22 mg-trimethoprim 160 mg tablet (Bactrim DS) ondansetron 4 mg disintegrating 4 mg PO Q8H PRN nausea and 10/02/25 tablet vomiting #20 tabs Allergies Allergy/AdvReac Type Severity Reaction Status Date / Time Penicillins Allergy hive Verified 10/02/25 16:37 Review of Systems <Karen Hearn PA-C - Last Filed: 10/02/25 19:46> Review of Systems ROS Unobtainable: All systems reviewed & are unremarkable except as noted in HPI and below Patient History <Karen Hearn PA-C - Last Filed: 10/02/25 19:46> Medical History Depression Esophageal spasm GERD (gastroesophageal reflux disease) Achalasia History of multiple concussions Chronic daily headache Healthy adult Surgical History History of esophageal surgery Family History Mother CAD (coronary artery disease) Stroke Hyperlipidemia Hypertension Heart attack Father Healthy adult Sister Hypertension Social History household members: spouse Smoking Status: Never smoker Smoking Status: Never smoker alcohol intake frequency: 0-2 drinks per day Exam <Karen Hearn PA-C - Last Filed: 10/02/25 19:46> Narrative Exam Narrative: GENERAL: 50 year old patient appears stated age. Well-developed patient, in no acute distress. HEAD: Left frontal/forehead contusion/hematoma, no palpable skull defect. EYES: PERRL. Extraocular motions intact. No scleral icterus. No injection or drainage. ENT: Clear ear canals and pearly perez TMs bilaterally. There is a superficial abrasion on the top of the right ear. No arellano sign or raccoon eyes. Nose without bleeding, purulent drainage. Throat without erythema, tonsillar hypertrophy or exudate. Airway patent. NECK: Trachea midline. Cervical ROM intact. No midline or paraspinal tenderness. CARDIOVASCULAR: Regular rate and rhythm. RESPIRATORY: ?Nonlabored respirations. ?Speaking in clear, full sentences. ?Clear to auscultation. Breath sounds equal bilaterally. No wheezes, rales, or rhonchi. ? NEURO: AOx3. ?Clear speech. ?Moves all 4 extremities appropriately. No facial asymmetry. SKIN: Superficial abrasion right ear helix, contusion left forehead. Initial Vital Signs Initial Vital Signs: Vital Signs Temperature 97.9 F 10/02/25 16:34 Pulse Rate 63 10/02/25 16:34 Respiratory Rate 16 10/02/25 16:34 Blood Pressure 122/62 10/02/25 16:34 Pulse Oximetry 100 10/02/25 16:34 Oxygen Delivery Method Room Air 10/02/25 16:34 <Mary Ellen Denis DO - Last Filed: 10/04/25 00:28> Initial Vital Signs Initial Vital Signs: Vital Signs Temperature 97.9 F 10/02/25 16:34 Pulse Rate 63 10/02/25 16:34 Respiratory Rate 16 10/02/25 16:34 Blood Pressure 122/62 10/02/25 16:34 Pulse Oximetry 100 10/02/25 16:34 Oxygen Delivery Method Room Air 10/02/25 16:34 Course <Karen Hearn PA-C - Last Filed: 10/02/25 19:46> Orders Ordered: Discontinued Medications Ondansetron HCl (Ondansetron 4 Mg Odt) 4 mg SL NOW ONE Stop: 10/02/25 17:34 Last Admin: 10/02/25 17:36 Dose: 4 mg Documented By: RB Vital Signs Vital signs: Vital Signs - 8 hr 10/02/25 16:34 10/02/25 17:38 Temperature 97.9 F 97.8 F Pulse Rate 63 70 Respiratory Rate 16 18 Blood Pressure 122/62 127/75 Pulse Oximetry 100 98 Oxygen Delivery Method Room Air Room Air <Mary Ellen Denis DO - Last Filed: 10/04/25 00:28> Orders Ordered: Discontinued Medications Ondansetron HCl (Ondansetron 4 Mg Odt) 4 mg SL NOW ONE Stop: 10/02/25 17:34 Last Admin: 10/02/25 17:36 Dose: 4 mg Documented By: RB Vital Signs Vital signs: Vital Signs - 8 hr 10/02/25 16:34 10/02/25 17:38 Temperature 97.9 F 97.8 F Pulse Rate 63 70 Respiratory Rate 16 18 Blood Pressure 122/62 127/75 Pulse Oximetry 100 98 Oxygen Delivery Method Room Air Room Air MDM - Head Injury <JOSE Gupta Last Filed: 10/02/25 19:46> Medical Records Attestation: I reviewed the patient's medical records. Imaging Data CT scan - head: Radiologist's Impression: PROCEDURE: CT HEAD/BRAIN WO CON INDICATIONS: Head butted by horse, hit on head on post TECHNIQUE: Noncontrast 4.5 mm thick angled axial sections acquired from the foramen magnum to the vertex, with coronal and sagittal reformats. For radiation dose reduction, the following was used: automated exposure control, adjustment of mA and/or kV according to patient size. COMPARISON: [facility], CT, CT HEAD/BRAIN WO CON, 06/12/2020, 20:46. FINDINGS: Image quality: Diagnostic CSF spaces: Basal cisterns are patent. Lateral ventricles are symmetric. Volume: Vascular calcifications. Periventricular white matter disease is commonly seen with chronic microangiopathy. Volume loss is present. These findings are [id number] Brain: No acute hemorrhage. No gross loss of perez-white differentiation Craniofacial structures: No significant paranasal sinus opacity. IMPRESSION: No acute intracranial abnormality. Dictated by: Devon Hector M.D. on 10/02/2025 at 17:04 Approved by: Devon Hector M.D. on 10/02/2025 at 17:05 CT - cervical spine: Radiologist's Impression: PROCEDURE: CT CERVICAL SPINE WO CON INDICATIONS: head butted by horse TECHNIQUE: Noncontrast 3 mm thick sections acquired from the skull base to the T4 level. Sagittal and coronal reformats were then constructed. For radiation dose reduction, the following was used: automated exposure control, adjustment of mA and/or kV according to patient size. COMPARISON: [facility], CT, CT CERVICAL SPINE WO CON, 12/04/2018, 18:41. FINDINGS: Image quality: Diagnostic Bones: Trace retrolisthesis of C3 on C4 and anterolisthesis of C4 on C5 likely degenerative. Vertebral body heights are well maintained. No traumatic subluxation. Mild overall degenerative changes Soft tissues: No pathologic prevertebral swelling. IMPRESSION: No displaced fracture or traumatic subluxation. Mild spondylosis. If there is high concern for further derangement, consider MRI evaluation. Dictated by: Devon Hector M.D. on 10/02/2025 at 17:05 Approved by: Devon Hector M.D. on 10/02/2025 at 17:08 MDM Narrative Medical decision making narrative: 50 year old female with a history of documented CVA who presents to the emergency department after being head-butted by her horse. Differential diagnosis includes but is not limited to concussion, closed head injury, hematoma, ICH, etc. On exam patient is in no acute distress, nontoxic-appearing, all vital signs within normal limits, no signs of basilar skull fracture. She was hit in the right side of the head by a horse causing the left side of her head to go into the wall. She has been having some nausea and feeling days since this occurred. We will obtain CT head, CT cervical spine given mechanism of injury. Zofran ordered for nausea. CT cervical spine reveals no displaced fracture or traumatic subluxation, there is mild spondylosis. CT head reveals no acute intracranial abnormality, patient does have some chronic vascular calcifications, I did recommend she follow up with the PCP in regards to chronic finding on imaging. Discussed diagnosis of concussion with the patient recommended rest, hydration, Zofran, Tylenol, avoid mental stimulation. Advised PCP follow up and strict ER return precautions. Patient verbalized understanding of all information agreeable with the plan. She is stable for discharge home. Discharge Plan Departure Patient Disposition: Home Clinical Impression: Closed head injury Qualifiers: Encounter type: initial encounter Qualified Code(s): S09.90XA - Unspecified injury of head, initial encounter Concussion without loss of consciousness Qualifiers: Encounter type: initial encounter Qualified Code(s): S06.0X0A - Concussion without loss of consciousness, initial encounter Instructions: Concussion, DI for Closed Head Injury Activity Restrictions/Additional Instructions: Dear Ms. Montelongo, Thank you for coming to the emergency department. Today you were evaluated for a head injury. CT scan of your head did not reveal any skull fracture or brain bleed. I am concerned that you have a concussion, you will likely have a mild headache and some nausea for a few days. Avoiding highly stimulating activities and even TV or computers may be helpful in minimizing your symptoms. Avoid activities that will put you at risk for another head injury for at least a week. You can take tylenol or motrin for headache or the prescription provided for nausea/vomiting. Return for worsening or persistent symptoms. Please follow up with your primary care doctor in regards to the chronic findings on your imaging that we discussed today. Please follow up with your primary care doctor within the next 2-3 days for ER follow-up. (If you do not have a PCP you can call [phone]. ?to schedule an appointment with an [facility] Primary Care Provider) IF YOU DEVELOP ANY NEW OR WORSENING SYMPTOMS, RETURN TO THE ER! Please read the attached instructions, they highlight more specific treatments and interventions for you at home. Thank you for letting me participate in your care, Karen Hearn PA-C Prescriptions: New ondansetron 4 mg tablet,disintegrating 4 mg PO Q8H PRN (Reason: nausea and vomiting) Qty: 20 0RF No Action duloxetine 60 mg capsule,delayed release(DR/EC) 60 mg PO DAILY diazepam 5 mg tablet 5 mg PO BID PRN (Reason: muscle spasm) Qty: 10 0RF oxycodone-acetaminophen 5-325 mg tablet 1 tab PO Q6H PRN (Reason: pain) Qty: 10 0RF ondansetron HCl [Zofran] 4 mg tablet 4 mg PO Q6H PRN (Reason: nausea and vomiting) Qty: 14 0RF dexamethasone [Decadron] 4 mg tablet 8 mg PO DAILY Qty: 4 0RF clindamycin HCl 150 mg capsule 450 mg PO TID Qty: 63 0RF sulfamethoxazole-trimethoprim [Bactrim DS] 800-160 mg tablet 1 tab PO BID Qty: 14 0RF Referrals: Dede Leigh PA-C [Primary Care Provider, Medical] Stand Alone Forms: Patient Portal/API, Work Release Note ED Sign-out <Mary Ellen Denis, - Last Filed: 10/04/25 00:28> Cosign ED Attending Katie Attestation: I was immediately available in the department for consultation.
--- NOTE | 2025-10-02 16:49 | PC.NURSE ---
Horse head butted patient, striking on right side of patients head, patient then hit left side of her head on a post. Hematoma noted to left side of head right along hair line of temporal region. Ear slightly swollen and red on right side. Denies tenderness to c-spine palpation. reports mild headache. When asked about vision it is hard to say I don't have good vision normally sometimes wear glasses and sometimes I don't Patient reports nausea with no vomiting. I just feel a little off No meds prior to arrival. Walking with a steady gait.
[2025-10-02] MEDS: ONDANSETRON 4 MG ODT SL (17:36)
[2025-10-02 17:38] VITALS: BP 127/75; PULSE 70; RESP 18; TEMP 36.6; O2SAT 98
== END 2025-10-02 17:40 | disposition home or self-care (01) ==
PROVIDERS: Emergency Provider Physician Assistant; PCP Physician Assistant
DX: S06.0X0A Concussion without loss of consciousness, initial encounter (principal); W55.12XA Struck by horse, initial encounter; Z86.73 Personal history of transient ischemic attack (TIA), and cerebral infarction without residual deficits
CPT/HCPCS: 70450; 72125; 99283; 99284